=== PATIENT | female | born 1960 | race Caucasian/White ===

== ENCOUNTER 2016-08-05 10:22 | Outpatient (RCR) | payer MEDICARE, MEDICAID ==
[~2016-08-05 10:22] MED LIST: ACHD5005 PO; CPR500T PO; FAMO20TA5 PO; GLIP5TAB13 PO; GOSERELIN ACETATE IL; HYDR-3454 PO; HYDR-3583 PO; HYDR1TAB66 PO; HYDR473S17 GT; IBUP-1773 PO; IBUP200T48 PO; LEVO500T69 PO; LEVO750T6 PO; METF-380 PO; METR500T PO; OMEP-10 PO; ONDA8TAB13 PO; PRED20TA PO; TAMO20TA2 PO; ZOLADEX SQ; ZOLODEX IL
[2016-08-05 10:52] LABS: BASOPHILS % (AUTO) 0 % (0-10); EOSINOPHILS # (AUTO) 0.1 10^3/uL (0.0-0.3); EOSINOPHILS % (AUTO) 2 % (0-10); LYMPHOCYTES # (AUTO) 1.4 X 10^3 (1.0-4.0); LYMPHOCYTES % (AUTO) 19 % (12-44); MEAN CORPUSCULAR HEMOGLOBIN 31 PG (25-34); MEAN CORPUSCULAR HGB CONC 33 G/DL (32-36); MEAN CORPUSCULAR VOLUME 92 FL (80-99); MEAN PLATELET VOLUME 10.8 FL (7.4-10.4); MONOCYTES # (AUTO) 0.7 X 10^3 (0.0-1.0); MONOCYTES % (AUTO) 10 % (0-12); NEUTROPHILS # (AUTO) 5.1 X 10^3 (1.8-7.8); NEUTROPHILS % (AUTO) 70 % (42-75); PLATELET COUNT 117 10^3/uL (130-400); RED BLOOD COUNT 4.53 10^6/uL (4.35-5.85); RED CELL DISTRIBUTION WIDTH 14.7 % (10.0-14.5); WHITE BLOOD COUNT 7.3 10^3/uL (4.3-11.0)
[2016-08-05 11:40] LABS: ALANINE AMINOTRANSFERASE 45 U/L (0-55); ALBUMIN 3.9 G/DL (3.2-4.5); ANION GAP 9 MMOL/L (5-14); ASPARTATE AMINO TRANSFERASE 42 U/L (5-34); BILIRUBIN,TOTAL 0.3 MG/DL (0.1-1.0); BLOOD UREA NITROGEN 10 MG/DL (7-18); BUN/CREATININE RATIO 11; CALCIUM 9.1 MG/DL (8.5-10.1); CARBON DIOXIDE 24 MMOL/L (21-32); CHLORIDE 108 MMOL/L (98-107); CREATININE SERUM 0.89 MG/DL (0.60-1.30); GFR ESTIMATED > 60; GLUCOSE 133 MG/DL (70-105); POTASSIUM 4.4 MMOL/L (3.6-5.0); SODIUM 141 MMOL/L (135-145); TOTAL PROTEIN 6.4 G/DL (6.4-8.2)
== END 2016-11-03 | disposition home or self-care (01) ==
LOC: ONC 10:22
PROVIDERS: ATTEND Internal Medicine Hematology & Oncology
DX: C50.212 Malignant neoplasm of upper-inner quadrant of left female breast (principal); C54.1 Malignant neoplasm of endometrium; D69.6 Thrombocytopenia, unspecified; R60.0 Localized edema; K75.81 Nonalcoholic steatohepatitis (NASH); Z92.21 Personal history of antineoplastic chemotherapy; Z92.3 Personal history of irradiation; Z79.818 Long term (current) use of other agents affecting estrogen receptors and estrogen levels
CPT/HCPCS: 36415; 80053; 85025; 99213

== ENCOUNTER → 2016-09-24 | Outpatient (CLI) | payer MEDICARE, MEDICAID ==
--- NOTE | 2016-09-24 19:01 | Diagnostic Imaging Report ---
INDICATION: Low back pain. TECHNIQUE: AP, Lateral and Spot imaging of the lumbar spine CORRELATION STUDY: None FINDINGS: Minimal anterolisthesis of L4 on L5. There is mild leftward curvature of lumbar spine at L2-L3 level. Lumbar vertebral body heights are maintained. Rather significant disc space narrowing at L4-L5 and to a lesser degree L3-L4 and L5-S1 levels. Mild endplate lipping, particularly at L4 and L2 and L1 levels. SI joints without fusion or erosion. Degenerative change of bilateral hip joints with subcortical sclerosis and cystic formation, particularly on the left. IMPRESSION: Mild leftward curvature. Mild multilevel lumbar spine degenerative disc disease. Dictated by: Dictated on workstation # [id number]
== END ==
LOC: RAD 14:42
PROVIDERS: ATTEND Pain Medicine Pain Medicine
DX: M54.5 Low back pain (principal)
CPT/HCPCS: 72100

== ENCOUNTER → 2016-12-04 | Outpatient (CLI) | payer MEDICARE ==
--- NOTE | 2016-12-04 13:53 | Diagnostic Imaging Report ---
Bilateral screening mammogram The current study was also evaluated with a Computer Aided Detection (CAD) system. INDICATION: Screening. No current complaints stated on the questionnaire. COMPARISON: 12/04/15. FINDINGS: The breasts are composed of heterogeneously dense parenchyma which may decrease mammographic sensitivity. There is scarring and skin thickening seen in the left breast, stable from multiple prior exams with slightly increased benign-appearing calcifications in the left breast. The right breast demonstrates no definite change. IMPRESSION: Slightly increased calcifications in the right breast with no suspicious findings. Annual screening mammograms recommended. ACR BI-RADS Category 2: Benign findings. Result letter will be mailed to the patient. Note: At least 10% of breast cancer is not imaged by mammography. Dictated by: Dictated on workstation # [id number]
== END ==
LOC: RAD 09:50
PROVIDERS: ATTEND Internal Medicine Hematology & Oncology
DX: Z12.31 Encounter for screening mammogram for malignant neoplasm of breast (principal)
CPT/HCPCS: 77067

== ENCOUNTER 2017-01-09 08:28 | Outpatient (RCR) | payer MEDICAID, MEDICARE | END 2017-01-09 09:13 | disposition home or self-care (01) | DX: M54.5 Low back pain (principal); M25.551 Pain in right hip; M25.552 Pain in left hip ==

== ENCOUNTER 2017-02-03 10:41 | Outpatient (RCR) | payer MEDICARE, MEDICAID ==
[2017-02-03 11:00] LABS: BASOPHILS % (AUTO) 0 % (0-10); EOSINOPHILS # (AUTO) 0.1 10^3/uL (0.0-0.3); EOSINOPHILS % (AUTO) 2 % (0-10); LYMPHOCYTES # (AUTO) 2.6 X 10^3 (1.0-4.0); LYMPHOCYTES % (AUTO) 30 % (12-44); MEAN CORPUSCULAR HEMOGLOBIN 31 PG (25-34); MEAN CORPUSCULAR HGB CONC 33 G/DL (32-36); MEAN CORPUSCULAR VOLUME 94 FL (80-99); MEAN PLATELET VOLUME 10.7 FL (7.4-10.4); MONOCYTES # (AUTO) 0.5 X 10^3 (0.0-1.0); MONOCYTES % (AUTO) 6 % (0-12); NEUTROPHILS # (AUTO) 5.4 X 10^3 (1.8-7.8); NEUTROPHILS % (AUTO) 62 % (42-75); PLATELET COUNT 123 10^3/uL (130-400); RED BLOOD COUNT 4.31 10^6/uL (4.35-5.85); RED CELL DISTRIBUTION WIDTH 15.1 % (10.0-14.5); WHITE BLOOD COUNT 8.7 10^3/uL (4.3-11.0)
[2017-02-03 11:40] LABS: ALBUMIN 3.7 GM/DL (3.2-4.5); BILIRUBIN,TOTAL 0.2 MG/DL (0.1-1.0); CALCIUM 9.1 MG/DL (8.5-10.1); CREATININE SERUM 0.98 MG/DL (0.60-1.30); TOTAL PROTEIN 6.4 GM/DL (6.4-8.2)
== END 2017-04-19 | disposition home or self-care (01) ==
LOC: ONC 10:41
PROVIDERS: ATTEND Internal Medicine Hematology & Oncology
DX: C54.1 Malignant neoplasm of endometrium; C50.212 Malignant neoplasm of upper-inner quadrant of left female breast; R60.0 Localized edema; Z79.818 Long term (current) use of other agents affecting estrogen receptors and estrogen levels; Z92.3 Personal history of irradiation; D69.6 Thrombocytopenia, unspecified; K75.81 Nonalcoholic steatohepatitis (NASH); Z92.21 Personal history of antineoplastic chemotherapy
CPT/HCPCS: 36415; 80053; 85025; 99213

== ENCOUNTER → 2017-08-11 | Outpatient (CLI) | payer MEDICARE ==
[2017-08-11 14:05] LABS: HEMOGLOBIN 14.7 G/DL (11.5-16.0); MEAN PLATELET VOLUME 11.4 FL (7.4-10.4); RED BLOOD COUNT 4.66 10^6/uL (4.35-5.85); RED CELL DISTRIBUTION WIDTH 15.1 % (10.0-14.5); WHITE BLOOD COUNT 9.9 10^3/uL (4.3-11.0)
[2017-08-11 14:24] LABS: ALBUMIN 3.8 GM/DL (3.2-4.5); BILIRUBIN,TOTAL 0.3 MG/DL (0.1-1.0); CALCIUM 8.9 MG/DL (8.5-10.1); POTASSIUM 4.4 MMOL/L (3.6-5.0); TOTAL PROTEIN 6.7 GM/DL (6.4-8.2)
--- NOTE | 2017-08-11 15:31 | Diagnostic Imaging Report ---
INDICATION: Cough and fever. TIME OF EXAM: 02:25 p.m. COMPARISON: Comparison is made with prior chest from 02/13/2015. FINDINGS: The heart size is normal. There is questionable infiltrate in the left perihilar region. The right lung is clear. No effusion or pneumothorax is seen. IMPRESSION: Findings suggestive of mild left perihilar pneumonia. Dictated by: Dictated on workstation # [id number]
== END ==
LOC: RAD 13:49
PROVIDERS: ATTEND Nurse Practitioner Family
DX: R05 Cough (principal); R50.9 Fever, unspecified
CPT/HCPCS: 36415; 71045; 80053; 85027; 86738

== ENCOUNTER 2017-08-18 10:55 | Outpatient (RCR) | payer MEDICARE, MEDICAID ==
[2017-08-18 11:21] LABS: BASOPHILS % (AUTO) 0 % (0-10); EOSINOPHILS # (AUTO) 0.1 10^3/uL (0.0-0.3); EOSINOPHILS % (AUTO) 1 % (0-10); HEMATOCRIT 44 % (35-52); HEMOGLOBIN 14.7 G/DL (11.5-16.0); LYMPHOCYTES # (AUTO) 3.4 X 10^3 (1.0-4.0); LYMPHOCYTES % (AUTO) 32 % (12-44); MEAN CORPUSCULAR HEMOGLOBIN 31 PG (25-34); MEAN CORPUSCULAR HGB CONC 34 G/DL (32-36); MEAN CORPUSCULAR VOLUME 92 FL (80-99); MEAN PLATELET VOLUME 11.6 FL (7.4-10.4); MONOCYTES # (AUTO) 0.8 X 10^3 (0.0-1.0); MONOCYTES % (AUTO) 8 % (0-12); NEUTROPHILS # (AUTO) 6.1 X 10^3 (1.8-7.8); NEUTROPHILS % (AUTO) 59 % (42-75); PLATELET COUNT 113 10^3/uL (130-400); RED BLOOD COUNT 4.77 10^6/uL (4.35-5.85); RED CELL DISTRIBUTION WIDTH 14.7 % (10.0-14.5); WHITE BLOOD COUNT 10.5 10^3/uL (4.3-11.0)
[2017-08-18 11:42] LABS: ALBUMIN 3.6 GM/DL (3.2-4.5); BILIRUBIN,TOTAL 0.3 MG/DL (0.1-1.0); CALCIUM 9.2 MG/DL (8.5-10.1); CREATININE SERUM 1.05 MG/DL (0.60-1.30); POTASSIUM 5.4 MMOL/L (3.6-5.0); TOTAL PROTEIN 6.5 GM/DL (6.4-8.2)
== END 2017-11-16 | disposition home or self-care (01) ==
LOC: ONC 10:55
PROVIDERS: ATTEND Internal Medicine Hematology & Oncology
DX: C50.212 Malignant neoplasm of upper-inner quadrant of left female breast (principal); C54.1 Malignant neoplasm of endometrium; D69.6 Thrombocytopenia, unspecified; R60.0 Localized edema; K75.81 Nonalcoholic steatohepatitis (NASH); Z92.21 Personal history of antineoplastic chemotherapy; Z92.3 Personal history of irradiation; Z79.818 Long term (current) use of other agents affecting estrogen receptors and estrogen levels; Z79.899 Other long term (current) drug therapy
CPT/HCPCS: 36415; 80053; 85025; 99213

== ENCOUNTER → 2017-08-21 | Outpatient (CLI) | payer MEDICARE ==
--- NOTE | 2017-08-21 14:43 | Diagnostic Imaging Report ---
INDICATION: Pneumonia, followup. Time of exam 2:24 PM Correlation is made to prior study of 08/11/2017. The heart size is stable. Mild left perihilar infiltrate remains. The right lung is clear. No effusion or pneumothorax is seen. IMPRESSION: Continued mild left-sided pulmonary infiltrate, similar to examination one week earlier. Dictated by: Dictated on workstation # [id number]
== END ==
LOC: RAD 13:47
PROVIDERS: ATTEND Nurse Practitioner Family
DX: J18.8 Other pneumonia, unspecified organism (principal)
CPT/HCPCS: 71046

== ENCOUNTER → 2017-12-05 | Outpatient (CLI) | payer MEDICAID, MEDICARE ==
--- NOTE | 2017-12-05 19:47 | Diagnostic Imaging Report ---
INDICATION: Left breast carcinoma. COMPARISON: Correlation is made with prior exam from 12/04/2016 and 12/04/2015. TECHNIQUE: Bilateral 2D and 3D diagnostic mammography was performed with computer-aided detection (CAD) system. FINDINGS: Post-lumpectomy changes in the left breast are again noted. Overall parenchymal pattern is stable. There are scattered fibroglandular densities bilaterally. There are bilateral calcifications which appear benign. No malignant appearing microcalcifications are seen. The axillae are unremarkable. IMPRESSION: No mammographic features suspicious for malignancy are identified. ACR BI-RADS Category 2: Benign findings. Result letter will be mailed to the patient. Note: At least 10% of breast cancer is not imaged by mammography. Dictated by: Dictated on workstation # [id number]
== END ==
LOC: RAD 11:55
PROVIDERS: ATTEND Nurse Practitioner Adult Health
DX: C50.212 Malignant neoplasm of upper-inner quadrant of left female breast (principal)
CPT/HCPCS: 77066

== ENCOUNTER 2018-01-06 10:30 | Outpatient (RCR) | payer MEDICARE ==
[2018-01-06 10:38] LABS: BASOPHILS % (AUTO) 0 % (0-10); EOSINOPHILS # (AUTO) 0.1 10^3/uL (0.0-0.3); EOSINOPHILS % (AUTO) 2 % (0-10); HEMATOCRIT 41 % (35-52); HEMOGLOBIN 13.8 G/DL (11.5-16.0); LYMPHOCYTES # (AUTO) 2.1 X 10^3 (1.0-4.0); LYMPHOCYTES % (AUTO) 28 % (12-44); MEAN CORPUSCULAR HEMOGLOBIN 31 PG (25-34); MEAN CORPUSCULAR HGB CONC 34 G/DL (32-36); MEAN CORPUSCULAR VOLUME 92 FL (80-99); MEAN PLATELET VOLUME 12.9 FL (7.4-10.4); MONOCYTES # (AUTO) 0.4 X 10^3 (0.0-1.0); MONOCYTES % (AUTO) 6 % (0-12); NEUTROPHILS # (AUTO) 4.8 X 10^3 (1.8-7.8); NEUTROPHILS % (AUTO) 64 % (42-75); PLATELET COUNT 76 10^3/uL (130-400); RED BLOOD COUNT 4.47 10^6/uL (4.35-5.85); RED CELL DISTRIBUTION WIDTH 14.9 % (10.0-14.5); WHITE BLOOD COUNT 7.5 10^3/uL (4.3-11.0)
[2018-01-06 10:59] LABS: ALBUMIN 3.7 GM/DL (3.2-4.5); BILIRUBIN,TOTAL 0.4 MG/DL (0.1-1.0); CALCIUM 9.1 MG/DL (8.5-10.1); CREATININE SERUM 1.32 MG/DL (0.60-1.30); POTASSIUM 5.9 MMOL/L (3.6-5.0); TOTAL PROTEIN 6.6 GM/DL (6.4-8.2)
== END 2018-01-08 10:32 | disposition home or self-care (01) ==
LOC: ONC 10:30
PROVIDERS: ATTEND Internal Medicine Hematology & Oncology
DX: C50.212 Malignant neoplasm of upper-inner quadrant of left female breast (principal); C54.1 Malignant neoplasm of endometrium; D69.6 Thrombocytopenia, unspecified; R60.0 Localized edema; K75.81 Nonalcoholic steatohepatitis (NASH); Z92.21 Personal history of antineoplastic chemotherapy; Z92.3 Personal history of irradiation; Z79.818 Long term (current) use of other agents affecting estrogen receptors and estrogen levels; Z79.899 Other long term (current) drug therapy
CPT/HCPCS: 36415; 80053; 85025; 99213

== ENCOUNTER → 2018-03-20 | Outpatient (RCR) | payer MEDICARE ==
[~2018-03-20] MED LIST changes: +NS IV 1000 ML (CANCER CTR) 1,000 ML ONE
== END | disposition home or self-care (01) ==
LOC: ONC 10:45
PROVIDERS: ATTEND Internal Medicine Hematology & Oncology
DX: C50.212 Malignant neoplasm of upper-inner quadrant of left female breast (principal); C54.1 Malignant neoplasm of endometrium; D69.6 Thrombocytopenia, unspecified; R60.0 Localized edema; K75.81 Nonalcoholic steatohepatitis (NASH); Z92.21 Personal history of antineoplastic chemotherapy; Z92.3 Personal history of irradiation; Z79.818 Long term (current) use of other agents affecting estrogen receptors and estrogen levels; Z79.899 Other long term (current) drug therapy
CPT/HCPCS: 96360

== ENCOUNTER → 2018-03-20 | Outpatient (CLI) | payer MEDICARE ==
[~2018-03-20] MED LIST changes: -NS IV 1000 ML (CANCER CTR) 1,000 ML ONE
[2018-03-20] MEDS: NS 250 ML (IVPB) BAG IV ONE (10:10)
[2018-03-20] MEDS: IOHEXOL 350 MG/ML 100 ML (OMNIPAQUE 350) VIAL IV ONE (10:10)
[2018-03-20] MEDS: BARIUM SUSPENSION 2.1% (VANILLA SILQ) 450 ML PO ONE (10:10)
--- NOTE | 2018-03-20 11:10 | Diagnostic Imaging Report ---
INDICATION: Bloating, history of endometrial cancer. CT chest, abdomen and pelvis obtained with IV contrast bolus and patient was premedicated due to history of previous allergic reaction. CT chest, abdomen and pelvis obtained and compared with 05/01/2015. CT CHEST FINDINGS: There are no enlarged mediastinal or hilar nodes. There are no enlarged axillary nodes. Some soft tissue thickening and scarring is visualized over the left breast, this appears unchanged from 05/01/2015, correlate with recent mammography. There is no pleural or pericardial fluid. Lung parenchymal windows demonstrate some apparent parenchymal scarring in the left upper lobe which appears similar to 05/01/2015. There is no suspicious nodule or infiltrate. CT ABDOMEN AND PELVIS FINDINGS: The liver shows mild fatty infiltration, less pronounced than was seen on 05/01/2015. There is no focal liver lesion. The gallbladder appears normal. The spleen, adrenals, and pancreas are normal. The kidneys bilaterally are unremarkable. There is no retroperitoneal mass or adenopathy. There is no ascites or abnormal fluid collection. There is minor atherosclerotic plaquing of the aorta but no evidence of aneurysm. Visualized bowel loops appear unremarkable. There is no pelvic mass or free fluid. Patient has had hysterectomy. IMPRESSION: CT chest demonstrates no acute abnormality or acute change from 05/01/2015. There is some parenchymal scarring in the left upper lobe which is unchanged from the prior study. There is some scarring in the left breast which appears stable as well, correlate with recent mammography. There is no acute appearing finding in the chest. CT abdomen and pelvis demonstrates no overt evidence of metastatic disease. There is no mass or inflammatory process or bowel obstruction. Fatty infiltration of the liver has improved compared to the previous study. Dictated by: Dictated on workstation # [id number]
== END ==
LOC: RAD 09:59
PROVIDERS: ATTEND Internal Medicine Hematology & Oncology
DX: K76.0 Fatty (change of) liver, not elsewhere classified (principal); J98.4 Other disorders of lung; N64.89 Other specified disorders of breast; Z85.42 Personal history of malignant neoplasm of other parts of uterus; Z85.3 Personal history of malignant neoplasm of breast
CPT/HCPCS: 71260; 74177

== ENCOUNTER 2018-06-30 10:56 | Outpatient (RCR) | payer MEDICARE ==
[2018-06-30 11:07] LABS: BASOPHILS % (AUTO) 1 % (0-10); EOSINOPHILS # (AUTO) 0.1 10^3/uL (0.0-0.3); EOSINOPHILS % (AUTO) 2 % (0-10); HEMATOCRIT 42 % (35-52); HEMOGLOBIN 13.6 G/DL (11.5-16.0); LYMPHOCYTES # (AUTO) 2.3 X 10^3 (1.0-4.0); LYMPHOCYTES % (AUTO) 36 % (12-44); MEAN CORPUSCULAR HEMOGLOBIN 31 PG (25-34); MEAN CORPUSCULAR HGB CONC 33 G/DL (32-36); MEAN CORPUSCULAR VOLUME 94 FL (80-99); MEAN PLATELET VOLUME 11.8 FL (7.4-10.4); MONOCYTES # (AUTO) 0.3 X 10^3 (0.0-1.0); MONOCYTES % (AUTO) 5 % (0-12); NEUTROPHILS # (AUTO) 3.6 X 10^3 (1.8-7.8); NEUTROPHILS % (AUTO) 57 % (42-75); PLATELET COUNT 84 10^3/uL (130-400); RED CELL DISTRIBUTION WIDTH 15.1 % (10.0-14.5); WHITE BLOOD COUNT 6.3 10^3/uL (4.3-11.0)
[2018-06-30 11:31] LABS: ALBUMIN 4.2 GM/DL (3.2-4.5); BILIRUBIN,TOTAL 0.3 MG/DL (0.1-1.0); CALCIUM 9.4 MG/DL (8.5-10.1); CREATININE SERUM 1.04 MG/DL (0.60-1.30); POTASSIUM 4.9 MMOL/L (3.6-5.0); TOTAL PROTEIN 6.6 GM/DL (6.4-8.2)
== END 2018-09-28 | disposition home or self-care (01) ==
LOC: ONC 10:56
PROVIDERS: ATTEND Internal Medicine Hematology & Oncology
DX: C50.212 Malignant neoplasm of upper-inner quadrant of left female breast (principal); C54.1 Malignant neoplasm of endometrium; D69.6 Thrombocytopenia, unspecified; R60.0 Localized edema; K75.81 Nonalcoholic steatohepatitis (NASH); Z92.21 Personal history of antineoplastic chemotherapy; Z92.3 Personal history of irradiation; Z79.818 Long term (current) use of other agents affecting estrogen receptors and estrogen levels; Z79.899 Other long term (current) drug therapy
CPT/HCPCS: 36415; 80053; 85025; 99213

== ENCOUNTER 2018-07-09 13:30 | Outpatient (RCR) | payer MEDICARE | END 2018-07-09 15:56 | disposition home or self-care (01) | PROVIDERS: ATTEND Internal Medicine Hematology & Oncology | DX: I89.0 Lymphedema, not elsewhere classified (principal); C50.212 Malignant neoplasm of upper-inner quadrant of left female breast ==

== ENCOUNTER → 2018-09-15 | Outpatient (CLI) | payer MEDICARE ==
[2018-09-15 07:41] LABS: HEMOGLOBIN 13.2 G/DL (11.5-16.0); MEAN PLATELET VOLUME 11.6 FL (7.4-10.4); RED CELL DISTRIBUTION WIDTH 15.1 % (10.0-14.5); WHITE BLOOD COUNT 8.2 10^3/uL (4.3-11.0)
[2018-09-15 07:44] LABS: BILIRUBIN,URINE NEGATIVE (NEGATIVE); CLARITY,URINE CLEAR; COLOR,URINE YELLOW; GLUCOSE, URINE (UA) NEGATIVE (NEGATIVE); KETONES,URINE NEGATIVE (NEGATIVE); LEUKOCYTE ESTERASE ,URINE NEGATIVE (NEGATIVE); NITRITE,URINE NEGATIVE (NEGATIVE); PH,URINE 5 (5-9); PROTEIN,URINE 1+ (NEGATIVE); UROBILINOGEN,URINE NORMAL (NORMAL)
[2018-09-15 08:02] LABS: BILIRUBIN,TOTAL 0.2 MG/DL (0.1-1.0); CALCIUM 9.5 MG/DL (8.5-10.1); CREATININE SERUM 1.07 MG/DL (0.60-1.30); POTASSIUM 4.6 MMOL/L (3.6-5.0); TOTAL PROTEIN 6.6 GM/DL (6.4-8.2)
[2018-09-15 08:11] LABS: BACTERIA,URINE NEGATIVE /HPF; WBC,URINE RARE /HPF
== END ==
LOC: LAB 07:15
PROVIDERS: ATTEND Registered Nurse
DX: E11.9 Type 2 diabetes mellitus without complications (principal); R74.8 Abnormal levels of other serum enzymes; D69.6 Thrombocytopenia, unspecified
CPT/HCPCS: 36415; 80053; 80061; 81000; 82043; 83036; 84443; 85027

== ENCOUNTER → 2018-12-08 | Outpatient (CLI) | payer MEDICARE ==
--- NOTE | 2018-12-08 15:45 | Diagnostic Imaging Report ---
INDICATION: Postmenopausal state, breast cancer. COMPARISON: None available. FINDINGS: AP Spine L1-L4: [BMD (g/cm2): 1.374] [T-Score: 1.4] [Z-Score: 1.8] [BMD Previous: N/A] [BMD % Change: N/A] LT Hip Neck: [BMD (g/cm2): 1.078] [T-Score: 0.3] [Z-Score: 1.0] LT Hip Total: [BMD (g/cm2):1.169] [T-Score:1.3] [Z-Score: 1.6] [BMD Previous: N/A] [BMD % Change: N/A] RT Hip Neck: [BMD (g/cm2):1.055] [T-Score:0.1] [Z-Score:0.8] RT Hip Total: [BMD (g/cm2):1.182] [T-score:1.4] [Z-Score:1.7] [BMD Previous:N/A] [BMD % Change:N/A] *Indicates significant change from prior examination based on 95% confidence level. World Health Organization criteria for BMD interpretation classify patients as Normal (T-score at or above -1.0), Osteopenic (T-score between -1.0 and -2.5) or Osteoporotic (T-score at or below -2.5). LIMITATIONS AND MODIFICATION: None. FRACTURE RISK (FRAX SCORE): The ten year probability of (%): Major Osteoporotic Fracture: [N/A] Hip Fracture: [N/A] IMPRESSION: 1. Normal bone mineral density. 2. Baseline examination. 3. See below National Osteoporosis Foundation guidelines on when to potentially initiate pharmacologic therapy. Based on the National Osteoporosis Foundation Guidelines, pharmacologic treatment should be initiated in any of the following, unless clinical conditions suggest otherwise: * Any patient with prior fragility fracture of the hip or vertebrae. A spine fracture indicates 5X risk for subsequent spine fracture and 2X risk for subsequent hip fracture. * Osteoporosis (T-score <-2.5). * Postmenopausal women and men age 50 and older with low bone mass/osteopenia (T-score between -1.0 and -2.5) by DXA and 10-year major osteoporotic fracture greater than 20% or a 10-year probability of hip fracture greater than 3%. These fracture risks are supplied above in the FRAX score, if applicable. * Clinician judgement and/or patient preferences may indicate treatment for people with 10-year fracture probabilities above or below these levels. Dictated by: Dictated on workstation # [id number]
== END ==
LOC: RAD 11:03
PROVIDERS: ATTEND Nurse Practitioner Adult Health
DX: C50.212 Malignant neoplasm of upper-inner quadrant of left female breast (principal); N18.3 Chronic kidney disease, stage 3 (moderate); Z78.0 Asymptomatic menopausal state
CPT/HCPCS: 77080

== ENCOUNTER → 2018-12-10 | Outpatient (CLI) | payer MEDICARE ==
--- NOTE | 2018-12-10 14:25 | Diagnostic Imaging Report ---
Indication: Breast carcinoma. Correlation is made with prior mammogram from 12/05/2017 and 12/04/2016. 2-D and 3-D bilateral diagnostic mammography was performed with CAD. Scattered fibronodular densities are identified bilaterally. Post therapeutic changes involving the left breast with architectural distortion appears to be stable. There are benign calcifications bilaterally. No new mass or malignant-appearing microcalcifications are seen. Axillae are unremarkable. Impression: BI-RADS category 2 No mammographic features suspicious for malignancy are identified. Dictated by: Dictated on workstation # [id number]
== END ==
LOC: RAD 12:25
PROVIDERS: ATTEND Nurse Practitioner Adult Health
DX: C50.212 Malignant neoplasm of upper-inner quadrant of left female breast (principal); N18.3 Chronic kidney disease, stage 3 (moderate); Z78.0 Asymptomatic menopausal state
CPT/HCPCS: 77066

== ENCOUNTER → 2018-12-12 | Emergency (ER) | payer MEDICARE | LOC: ER 18:15 ==

== ENCOUNTER 2018-12-29 10:25 | Outpatient (RCR) | payer MEDICARE ==
[~2018-12-29 10:25] MED LIST changes: +CEFD300C3 PO; +GUAI1TBM19 PO; +METH4TAB PO
[2018-12-29 10:46] LABS: BASOPHILS % (AUTO) 0 % (0-10); EOSINOPHILS # (AUTO) 0.1 10^3/uL (0.0-0.3); EOSINOPHILS % (AUTO) 1 % (0-10); HEMATOCRIT 39 % (35-52); HEMOGLOBIN 12.8 G/DL (11.5-16.0); LYMPHOCYTES # (AUTO) 2.6 X 10^3 (1.0-4.0); LYMPHOCYTES % (AUTO) 36 % (12-44); MEAN CORPUSCULAR HEMOGLOBIN 31 PG (25-34); MEAN CORPUSCULAR HGB CONC 33 G/DL (32-36); MEAN CORPUSCULAR VOLUME 94 FL (80-99); MEAN PLATELET VOLUME 11.3 FL (7.4-10.4); MONOCYTES # (AUTO) 0.5 X 10^3 (0.0-1.0); MONOCYTES % (AUTO) 7 % (0-12); NEUTROPHILS % (AUTO) 56 % (42-75); PLATELET COUNT 76 10^3/uL (130-400); RED CELL DISTRIBUTION WIDTH 15.7 % (10.0-14.5); WHITE BLOOD COUNT 7.1 10^3/uL (4.3-11.0)
[2018-12-29 11:03] LABS: ALBUMIN 3.7 GM/DL (3.2-4.5); BILIRUBIN,TOTAL 0.3 MG/DL (0.1-1.0); CALCIUM 9.3 MG/DL (8.5-10.1); CREATININE SERUM 1.12 MG/DL (0.60-1.30); POTASSIUM 5.5 MMOL/L (3.6-5.0); TOTAL PROTEIN 6.3 GM/DL (6.4-8.2)
== END 2019-03-29 | disposition home or self-care (01) ==
LOC: ONC 10:25
PROVIDERS: ATTEND Internal Medicine Hematology & Oncology
DX: C50.212 Malignant neoplasm of upper-inner quadrant of left female breast (principal); Z85.41 Personal history of malignant neoplasm of cervix uteri; D69.6 Thrombocytopenia, unspecified; N18.3 Chronic kidney disease, stage 3 (moderate); E11.22 Type 2 diabetes mellitus with diabetic chronic kidney disease; R19.7 Diarrhea, unspecified; Z90.710 Acquired absence of both cervix and uterus; Z79.810 Long term (current) use of selective estrogen receptor modulators (SERMs); Z79.84 Long term (current) use of oral hypoglycemic drugs; Z79.899 Other long term (current) drug therapy; Z78.0 Asymptomatic menopausal state
CPT/HCPCS: 36415; 80053; 85025; 99213

== ENCOUNTER → 2019-06-29 | Outpatient (CLI) | payer MEDICARE ==
[2019-06-29 10:41] LABS: BASOPHILS % (AUTO) 0 % (0-10); EOSINOPHILS # (AUTO) 0.1 10^3/uL (0.0-0.3); EOSINOPHILS % (AUTO) 1 % (0-10); HEMATOCRIT 42 % (35-52); HEMOGLOBIN 13.6 G/DL (11.5-16.0); LYMPHOCYTES # (AUTO) 2.6 X 10^3 (1.0-4.0); LYMPHOCYTES % (AUTO) 35 % (12-44); MEAN CORPUSCULAR HEMOGLOBIN 31 PG (25-34); MEAN CORPUSCULAR HGB CONC 33 G/DL (32-36); MEAN CORPUSCULAR VOLUME 94 FL (80-99); MEAN PLATELET VOLUME 11.6 FL (7.4-10.4); MONOCYTES # (AUTO) 0.5 X 10^3 (0.0-1.0); MONOCYTES % (AUTO) 7 % (0-12); NEUTROPHILS # (AUTO) 4.2 X 10^3 (1.8-7.8); NEUTROPHILS % (AUTO) 57 % (42-75); PLATELET COUNT 84 10^3/uL (130-400); RED CELL DISTRIBUTION WIDTH 14.9 % (10.0-14.5); WHITE BLOOD COUNT 7.3 10^3/uL (4.3-11.0)
[2019-06-29 11:02] LABS: BILIRUBIN,TOTAL 0.2 MG/DL (0.1-1.0); CALCIUM 8.9 MG/DL (8.5-10.1); CREATININE SERUM 1.09 MG/DL (0.60-1.30); POTASSIUM 4.6 MMOL/L (3.6-5.0); TOTAL PROTEIN 6.5 GM/DL (6.4-8.2)
== END ==
LOC: EDSTATUS 03-30 10:31 → ONC 10:32
PROVIDERS: ATTEND Internal Medicine Hematology & Oncology
DX: C50.212 Malignant neoplasm of upper-inner quadrant of left female breast (principal); D69.6 Thrombocytopenia, unspecified; E11.22 Type 2 diabetes mellitus with diabetic chronic kidney disease; N18.3 Chronic kidney disease, stage 3 (moderate); Z92.21 Personal history of antineoplastic chemotherapy; Z92.3 Personal history of irradiation; Z85.42 Personal history of malignant neoplasm of other parts of uterus
CPT/HCPCS: 80053; 85025; 99213

== ENCOUNTER → 2019-12-14 | Outpatient (CLI) | payer MEDICARE ==
--- NOTE | 2019-12-14 13:05 | Diagnostic Imaging Report ---
INDICATION: Routine screening. COMPARISON: 12/10/2018 and 12/05/2017. TECHNIQUE: 2D and 3D bilateral screening mammography was performed with CAD. FINDINGS: Post-therapeutic changes in the left breast are again noted with architectural distortion. There are benign calcifications throughout the left breast. The right breast appears to be stable. No new mass or malignant appearing microcalcifications are seen. The axillae are unremarkable. IMPRESSION: No mammographic features suspicious for malignancy are identified. ACR BI-RADS Category 2: Benign findings. Result letter will be mailed to the patient. Note: At least 10% of breast cancer is not imaged by mammography. Dictated by: Dictated on workstation # [id number]
== END ==
LOC: RAD 09:17
PROVIDERS: ATTEND Internal Medicine Hematology & Oncology
DX: Z12.31 Encounter for screening mammogram for malignant neoplasm of breast (principal); C50.212 Malignant neoplasm of upper-inner quadrant of left female breast
CPT/HCPCS: 77063; 77067

== ENCOUNTER → 2020-01-05 | Outpatient (CLI) | payer MEDICARE ==
[2020-01-05 10:14] LABS: BASOPHILS % (AUTO) 0 % (0-10); EOSINOPHILS # (AUTO) 0.1 10^3/uL (0.0-0.3); EOSINOPHILS % (AUTO) 2 % (0-10); HEMATOCRIT 39 % (35-52); LYMPHOCYTES # (AUTO) 2.1 X 10^3 (1.0-4.0); LYMPHOCYTES % (AUTO) 36 % (12-44); MEAN CORPUSCULAR HEMOGLOBIN 31 PG (25-34); MEAN CORPUSCULAR HGB CONC 33 G/DL (32-36); MEAN CORPUSCULAR VOLUME 93 FL (80-99); MEAN PLATELET VOLUME 12.1 FL (7.4-10.4); MONOCYTES # (AUTO) 0.5 X 10^3 (0.0-1.0); MONOCYTES % (AUTO) 9 % (0-12); NEUTROPHILS # (AUTO) 3.1 X 10^3 (1.8-7.8); NEUTROPHILS % (AUTO) 53 % (42-75); PLATELET COUNT 79 10^3/uL (130-400); RED CELL DISTRIBUTION WIDTH 14.5 % (10.0-14.5); WHITE BLOOD COUNT 5.8 10^3/uL (4.3-11.0)
[2020-01-05 10:34] LABS: ALBUMIN 3.8 GM/DL (3.2-4.5); BILIRUBIN,TOTAL 0.2 MG/DL (0.1-1.0); CALCIUM 8.9 MG/DL (8.5-10.1); CREATININE SERUM 1.02 MG/DL (0.60-1.30); POTASSIUM 5.1 MMOL/L (3.6-5.0); TOTAL PROTEIN 6.7 GM/DL (6.4-8.2)
== END ==
LOC: ONC 10:03
PROVIDERS: ATTEND Internal Medicine Hematology & Oncology
DX: C50.212 Malignant neoplasm of upper-inner quadrant of left female breast (principal); C54.1 Malignant neoplasm of endometrium; D69.6 Thrombocytopenia, unspecified; Z92.3 Personal history of irradiation
CPT/HCPCS: 80053; 85025; G0463; 99213

== ENCOUNTER → 2020-07-04 | Outpatient (CLI) | payer MEDICARE ==
[2020-07-04 10:45] LABS: BASOPHILS % (AUTO) 0 % (0-10); EOSINOPHILS # (AUTO) 0.1 10^3/uL (0.0-0.3); EOSINOPHILS % (AUTO) 2 % (0-10); HEMATOCRIT 36 % (35-52); HEMOGLOBIN 10.9 g/dL (11.5-16.0); LYMPHOCYTES # (AUTO) 1.7 10^3/uL (1.0-4.0); LYMPHOCYTES % (AUTO) 33 % (12-44); MEAN CORPUSCULAR HEMOGLOBIN 29 pg (25-34); MEAN CORPUSCULAR HGB CONC 30 g/dL (32-36); MEAN CORPUSCULAR VOLUME 94 fL (80-99); MEAN PLATELET VOLUME 12.9 fL (9.0-12.2); MONOCYTES # (AUTO) 0.3 10^3/uL (0.0-1.0); MONOCYTES % (AUTO) 6 % (0-12); NEUTROPHILS % (AUTO) 59 % (42-75); PLATELET COUNT 85 10^3/uL (130-400)
[2020-07-04 11:12] LABS: ALBUMIN 3.5 GM/DL (3.2-4.5); BILIRUBIN,TOTAL 0.3 MG/DL (0.1-1.0); CALCIUM 8.4 MG/DL (8.5-10.1); POTASSIUM 4.5 MMOL/L (3.6-5.0); TOTAL PROTEIN 6.1 GM/DL (6.4-8.2)
== END ==
LOC: ONC 10:35
PROVIDERS: ATTEND Internal Medicine Hematology & Oncology
DX: C50.219 Malignant neoplasm of upper-inner quadrant of unspecified female breast (principal); D69.6 Thrombocytopenia, unspecified; Z79.810 Long term (current) use of selective estrogen receptor modulators (SERMs)
CPT/HCPCS: 80053; 85025; G0463; 99213

== ENCOUNTER → 2020-07-31 | Outpatient (CLI) | payer MEDICARE ==
[~2020-07-31] MED LIST changes: +CATHETER FLUSH 10 ML SYR IV PRN; +HOLD METFORMIN - RECEIVED CONTRAST 20 ML VIAL IV SCH; +IOHEXOL 350 MG/ML 100 ML (OMNIPAQUE 350) VIAL IV ONE; +NS 100 ML (IVPB) BAG IV ONE
--- NOTE | 2020-07-31 10:22 | Diagnostic Imaging Report ---
PROCEDURE: CT chest and abdomen with contrast. TECHNIQUE: Multiple contiguous axial images were obtained through the chest and abdomen after the administration of intravenous contrast. Auto Exposure Controls were utilized during the CT exam to meet ALARA standards for radiation dose reduction. INDICATION: Breast cancer. FINDINGS: The previous CT chest, abdomen, and pelvis exam of 03/20/2018 failed to show any sign of an acute abnormality. There was no evidence for metastatic disease related to the patient's diagnosis of breast cancer either. The images through the thorax show that the heart size is within normal limits and stable when compared to the prior exam. Coronary artery calcifications are evident. The aorta is not abnormally dilated and there is no sign of dissection. The pulmonary arteries were not well opacified and consequently difficult to assess for a pulmonary embolus. There is no definite defect to indicate a pulmonary embolus. The prior exam did show scar formation in the left upper lobe. That finding is again evident and no different. The lungs are otherwise generally clear. There is no sign of failure, pneumonia, or pleural effusion. There is no parenchymal lung mass identified either. There is no mediastinal or hilar adenopathy. The faint area of diminished density in the right lobe of the thyroid seen previously is again evident and no different. The scar formation in the left retroareolar region noted on the prior study is also unchanged. There is no obvious breast mass. The images through the abdomen again show the liver is of lower density than usually seen. This does suggest fatty metamorphosis. There is no focal mass involving the liver to suggest metastatic disease. The spleen, pancreas, adrenals, gallbladder, kidneys, aorta, and inferior vena cava show no sign of an acute abnormality. The stomach is partially filled with oral contrast and difficult to assess. There is no mass or free fluid collection evident. The bone windows show no evidence for a fracture or for a destructive lesion. IMPRESSION: 1. The appearance of the chest and abdomen is stable when compared to the prior exam. There is still no evidence for an acute abnormality and there is no sign of metastatic disease related to the patient's diagnosis of breast cancer. 2. 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 Dictated by: Dictated on workstation # [id number]
== END ==
LOC: RAD 09:17
PROVIDERS: ATTEND Internal Medicine Hematology & Oncology
DX: Z12.31 Encounter for screening mammogram for malignant neoplasm of breast (principal); C50.219 Malignant neoplasm of upper-inner quadrant of unspecified female breast; C54.1 Malignant neoplasm of endometrium; K76.0 Fatty (change of) liver, not elsewhere classified
CPT/HCPCS: 71260; 74160

== ENCOUNTER → 2020-12-14 | Outpatient (CLI) | payer MEDICARE ==
[~2020-12-14] MED LIST changes: -CATHETER FLUSH 10 ML SYR IV PRN; -HOLD METFORMIN - RECEIVED CONTRAST 20 ML VIAL IV SCH; -IOHEXOL 350 MG/ML 100 ML (OMNIPAQUE 350) VIAL IV ONE; -NS 100 ML (IVPB) BAG IV ONE
--- NOTE | 2020-12-14 14:01 | Diagnostic Imaging Report ---
INDICATION: Routine screening. Comparison is made with prior mammogram 12/14/2019 and 12/10/2018. 2-D and 3-D bilateral screening mammography was performed with a Computer Aided Detection (CAD) system. 3-D tomosynthesis was also performed and reviewed. FINDINGS: Both breasts are heterogeneously dense, limiting the sensitivity of mammography. Post-therapeutic changes with architectural distortion and numerous benign calcifications left breast is again noted. No new mass or malignant appearing microcalcifications are seen. Axillae are unremarkable. IMPRESSION: No mammographic features suspicious for malignancy are identified. ACR BI-RADS Category 2: Benign findings. Result letter will be mailed to the patient. Note: At least 10% of breast cancer is not imaged by mammography. Dictated by: Dictated on workstation # [id number]
== END ==
LOC: RAD 10:11
PROVIDERS: ATTEND Internal Medicine Hematology & Oncology
DX: Z12.31 Encounter for screening mammogram for malignant neoplasm of breast (principal); C50.219 Malignant neoplasm of upper-inner quadrant of unspecified female breast; C54.1 Malignant neoplasm of endometrium
CPT/HCPCS: 77063; 77067

== ENCOUNTER → 2021-01-02 | Outpatient (CLI) | payer MEDICARE ==
[2021-01-02 10:14] LABS: BASOPHILS % (AUTO) 0 % (0-10); EOSINOPHILS # (AUTO) 0.1 10^3/uL (0.0-0.3); EOSINOPHILS % (AUTO) 2 % (0-10); HEMATOCRIT 37 % (35-52); HEMOGLOBIN 11.5 g/dL (11.5-16.0); LYMPHOCYTES # (AUTO) 1.8 10^3/uL (1.0-4.0); LYMPHOCYTES % (AUTO) 33 % (12-44); MEAN CORPUSCULAR HEMOGLOBIN 28 pg (25-34); MEAN CORPUSCULAR HGB CONC 31 g/dL (32-36); MEAN CORPUSCULAR VOLUME 90 fL (80-99); MEAN PLATELET VOLUME 12.3 fL (9.0-12.2); MONOCYTES # (AUTO) 0.5 10^3/uL (0.0-1.0); MONOCYTES % (AUTO) 8 % (0-12); NEUTROPHILS # (AUTO) 3.2 10^3/uL (1.8-7.8); NEUTROPHILS % (AUTO) 56 % (42-75); PLATELET COUNT 75 10^3/uL (130-400); WHITE BLOOD COUNT 5.6 10^3/uL (4.3-11.0)
[2021-01-02 10:40] LABS: ALBUMIN 3.6 GM/DL (3.2-4.5); BILIRUBIN,TOTAL 0.3 MG/DL (0.1-1.0); CREATININE SERUM 1.3 MG/DL (0.60-1.30); POTASSIUM 4.6 MMOL/L (3.6-5.0); TOTAL PROTEIN 6.4 GM/DL (6.4-8.2)
== END ==
LOC: ONC 10:04
PROVIDERS: ATTEND Internal Medicine Hematology & Oncology
DX: C54.1 Malignant neoplasm of endometrium (principal); C50.211 Malignant neoplasm of upper-inner quadrant of right female breast; Z90.12 Acquired absence of left breast and nipple; C50.912 Malignant neoplasm of unspecified site of left female breast; D69.6 Thrombocytopenia, unspecified; E11.22 Type 2 diabetes mellitus with diabetic chronic kidney disease; N18.30 Chronic kidney disease, stage 3 unspecified; K21.9 Gastro-esophageal reflux disease without esophagitis; Z98.890 Other specified postprocedural states; Z92.21 Personal history of antineoplastic chemotherapy; Z79.810 Long term (current) use of selective estrogen receptor modulators (SERMs)
CPT/HCPCS: 80053; 85025; G0463; 99213

== ENCOUNTER → 2021-02-21 | Outpatient (CLI) | payer MEDICARE | LOC: CARD 11:30 | PROVIDERS: ATTEND Internal Medicine Cardiovascular Disease | DX: I08.0 Rheumatic disorders of both mitral and aortic valves (principal) | CPT/HCPCS: 93306 ==

== ENCOUNTER → 2021-05-04 | Outpatient (CLI) | payer MEDICARE ==
--- NOTE | 2021-05-04 11:45 | Diagnostic Imaging Report ---
PROCEDURE: US Gallbladder. TECHNIQUE: Multiple real-time grayscale images were obtained over the right upper quadrant in various projections. INDICATION: Right upper quadrant pain. FINDINGS: There are no prior ultrasound examinations available for comparison. The CT abdomen/pelvis exam of 07/31/2020 failed to show any sign of an acute abnormality of the gallbladder. On this exam, there is still no evidence for cholelithiasis or acute cholecystitis, and the common bile duct is not dilated. The liver does not appear to be enlarged. The liver is somewhat more echogenic than usually seen. This appearance does raise a question of fatty metamorphosis. There is also an area of diminished echogenicity within the right lobe of the liver near the gallbladder fossa. This may be related to regional focal fatty sparing. The biliary tree is not abnormally dilated. Spectral and color-flow imaging of the portal vein shows the vein is patent. The right kidney, the aorta, and the inferior vena cava are unremarkable. The pancreas was not well visualized. IMPRESSION: 1. There is no evidence for an acute abnormality of the right upper quadrant. 2. If clinical concern regarding an underlying abnormality of the gallbladder persists and further imaging is desired, then a nuclear medicine hepatobiliary scan would be recommended. 3. The appearance of the liver does suggest fatty metamorphosis. Dictated by: Dictated on workstation # [id number]
== END ==
LOC: RAD 07:00
PROVIDERS: ATTEND Nurse Practitioner Family
DX: R10.11 Right upper quadrant pain (principal)
CPT/HCPCS: 76705

== ENCOUNTER → 2021-07-03 | Outpatient (CLI) | payer MEDICARE ==
[2021-07-03 11:03] LABS: BASOPHILS % (AUTO) 0 % (0-10); EOSINOPHILS # (AUTO) 0.1 10^3/uL (0.0-0.3); EOSINOPHILS % (AUTO) 1 % (0-10); HEMATOCRIT 40 % (35-52); HEMOGLOBIN 12.7 g/dL (11.5-16.0); LYMPHOCYTES # (AUTO) 2.1 10^3/uL (1.0-4.0); LYMPHOCYTES % (AUTO) 30 % (12-44); MEAN CORPUSCULAR HEMOGLOBIN 30 pg (25-34); MEAN CORPUSCULAR HGB CONC 32 g/dL (32-36); MEAN CORPUSCULAR VOLUME 95 fL (80-99); MEAN PLATELET VOLUME 12.6 fL (9.0-12.2); MONOCYTES # (AUTO) 0.4 10^3/uL (0.0-1.0); MONOCYTES % (AUTO) 6 % (0-12); NEUTROPHILS # (AUTO) 4.3 10^3/uL (1.8-7.8); NEUTROPHILS % (AUTO) 61 % (42-75); PLATELET COUNT 92 10^3/uL (130-400)
[2021-07-03 11:23] LABS: ALBUMIN 3.7 GM/DL (3.2-4.5); BILIRUBIN,TOTAL 0.2 MG/DL (0.1-1.0); CREATININE SERUM 1.34 MG/DL (0.60-1.30); POTASSIUM 4.8 MMOL/L (3.6-5.0); TOTAL PROTEIN 6.5 GM/DL (6.4-8.2)
== END ==
LOC: ONC 10:57
PROVIDERS: ATTEND Internal Medicine Hematology & Oncology
DX: C50.211 Malignant neoplasm of upper-inner quadrant of right female breast (principal); C50.912 Malignant neoplasm of unspecified site of left female breast; C54.1 Malignant neoplasm of endometrium; D69.6 Thrombocytopenia, unspecified; I08.0 Rheumatic disorders of both mitral and aortic valves; K21.9 Gastro-esophageal reflux disease without esophagitis; E11.22 Type 2 diabetes mellitus with diabetic chronic kidney disease; I12.9 Hypertensive chronic kidney disease with stage 1 through stage 4 chronic kidney disease, or unspecified chronic kidney disease; N18.30 Chronic kidney disease, stage 3 unspecified; E66.9 Obesity, unspecified; Z92.21 Personal history of antineoplastic chemotherapy; Z90.12 Acquired absence of left breast and nipple; Z98.890 Other specified postprocedural states; Z92.3 Personal history of irradiation
CPT/HCPCS: 80053; 85025; G0463; 99213

== ENCOUNTER → 2021-08-06 | Outpatient (CLI) | payer MEDICARE | LOC: LABNPT 08:16 | PROVIDERS: ATTEND Family Medicine | DX: Z20.822 Contact with and (suspected) exposure to COVID-19 (principal) | CPT/HCPCS: 87635 ==

== ENCOUNTER → 2021-09-25 | Outpatient (CLI) | payer MEDICARE, OTHER ==
--- NOTE | 2021-09-25 14:42 | Diagnostic Imaging Report ---
INDICATION: Fall with right hip pain. TIME OF EXAM: 12:40 PM Two views of the right hip were obtained. Femoral acetabular alignment is normal. The joint space is well maintained. Femoral head and neck are intact. No fractures are seen. IMPRESSION: No acute abnormality is detected. Dictated by: Dictated on workstation # [id number]
== END ==
LOC: RAD 12:08
PROVIDERS: ATTEND Nurse Practitioner Family
DX: M25.551 Pain in right hip (principal); W19.XXXA Unspecified fall, initial encounter
CPT/HCPCS: 73502

== ENCOUNTER 2021-10-30 18:13 | Emergency (ER) | payer MEDICARE ==
[~2021-10-30] VITALS: Ht 157 cm; Wt 87.0 kg
[2021-10-30] MEDS ORDERED: RT-ALBUTEROL/IPRATROPIUM 3 ML (DUONEB) VIAL INH ONE (18:45)
--- NOTE | 2021-10-30 19:03 | ED Cough/URI ---
General Chief Complaint: Cough/Cold/Flu Symptoms Stated Complaint: COLD GETTING WORSE,SOB Nursing Triage Note: ARRIVED VIA AMB TO ROOM WITH COMPLAINTS OF A SORE THROAT STARTING ON SAT THAT HAS NOW TURNED INTO A BAD COUGH. STATES SHE TOOK A HOME COVID TEST THIS AM AND IT WAS NEG. Source: patient Exam Limitations: no limitations History of Present Illness Date Seen by Provider: Oct 30, 2021 Time Seen by Provider: 18:16 Initial Comments 60-year-old female with past medical history of diabetes, hypertension, hyperlipidemia, long-term smoker coming in due to 1 day of cough that becoming more productive. Taken at home COVID test this morning which was negative. Has an inhaler at home but has not used it in quite some time. Denies any fever, vomiting, diarrhea, abdominal pain, chest pain, shortness of breath, weakness, numbness, rash, or any other concerns. Allergies and Home Medications Allergies Coded Allergies: Penicillins (Verified Allergy, Unknown, 09/17/11) erythromycin base (Verified Allergy, Unknown, 09/17/11) iodine (Unverified Allergy, Unknown, 01/20/14) paclitaxel (Verified Allergy, Unknown, 03/30/12) Patient Home Medication List Home Medication List Reviewed: Yes Cefdinir (Cefdinir) 300 Mg Capsule, 300 MG PO BID Prescribed by: KEE HE on 12/12/182028 Doxycycline Hyclate (Doxycycline Hyclate) 100 Mg Tablet, 100 MG PO BID Prescribed by: TRANG RASHID on 10/30/211940 Famotidine (Pepcid) 20 Mg Tablet, 20 MG PO HS, (Reported) Entered as Reported by: FREYA PALOMARES on 12/24/13 1332 Guaifenesin/Dextromethorphan (Mucinex Dm ER 1,200-60 mg Tab) 1 Each Tbmp.12hr, 1 EACH PO BID Prescribed by: KEE HE on 12/12/182028 Hydrocodone Bit/Acetaminophen (Vicodin 5-300 Mg Tablet) 1 Each Tablet, 1 EACH PO Q4H PRN for PAIN Prescribed by: SAIMA HUITRON on 01/19/15 0831 Hydrocodone/Chlorphen Polis (Tussionex Susp) 5 Ml Susp, 5 ML GT Q12H PRN for COUGH Prescribed by: GABRIELA VASQUEZ on 01/24/152052 Levofloxacin (Levaquin) 750 Mg Tablet, 750 MG PO DAILY Prescribed by: GABRIELA VASQUEZ on 01/24/152052 Methylprednisolone (Medrol) 4 Mg Tab.ds.pk, 4 MG PO UD Prescribed by: KEE HE on 12/12/182028 Prednisone (Prednisone) 20 Mg Tablet, 60 MG PO DAILY Prescribed by: GABRIELA VASQUEZ on 01/24/152052 Tamoxifen Citrate (Tamoxifen Citrate) 20 Mg Tablet, 20 MG PO HS, (Reported) Entered as Reported by: AUSTIN CARBAJAL on 01/20/142052 Review of Systems Review of Systems Constitutional: No chills EENTM: No blurred vision Respiratory: cough Cardiovascular: no symptoms reported Gastrointestinal: no symptoms reported Genitourinary: no symptoms reported Musculoskeletal: no symptoms reported Skin: no symptoms reported Psychiatric/Neurological: No Symptoms Reported Hematologic/Lymphatic: No Symptoms Reported Immunological/Allergic: no symptoms reported All Other Systems Reviewed Negative Unless Noted: Yes Past Qdqcdxm-Gtzyne-Wxokgj Hx Patient Social History Tobacco Use?: Yes Tobacco type used: Cigarettes Smoking Status: Current Everyday Smoker Substance use?: No Alcohol Use?: No Immunizations Up To Date Tetanus Booster (TDap): Less than 5yrs COVID19 Vaccine Resident Assistant: MODERNA Past Medical History Surgeries: Yes Breast, Hysterectomy, Lumpectomy Respiratory: No Cardiac: No Neurological: No Reproductive Disorders: Yes (ENDOMETRIAL CANCER) [employer] HEL[employer] History: Hysterectomy Sexually Transmitted Disease: No HIV/AIDS: No Genitourinary: No Gastrointestinal: Yes Gastroesophageal Reflux, Diverticulosis Musculoskeletal: Yes (L4 AND L5 BULGING AND HERNIATED DISC) Chronic Back Pain Endocrine: Yes Diabetes, Non-Insulin dep HEENT: No Cancer: Yes (BREAST AND ENDOMETRIAL) Breast Did You Recieve Any Treatments: Yes What Type of Treatment Did You: Surgical Intervention Psychosocial: No Integumentary: No Herpes Blood Disorders: No Family Medical History Congestive heart failure 19 FATHER 19 MOTHER Family history: Arthritis 19 FATHER Family history: Cardiovascular disease 19 FATHER 19 MOTHER Family history: Diabetes mellitus 19 FATHER 19 MOTHER Family history: Gastrointestinal disease 19 FATHER History of - respiratory disease 19 FATHER Kidney disease G8 SISTER No Family History of: Abdominal aortic aneurysm Alcoholism Cancer Dementia Family history: Alzheimer's disease Family history: Asthma Family history: Breast disease Family history: Hypertension Family history: Thyroid disorder Heart disease Hereditary disease Myocardial infarction Parkinson's disease Psychotic disorder Seizure disorder Stroke Physical Exam Vital Signs - First Documented 10/30/21 10/30/21 18:20 19:48 Temp 36.3 Pulse 104 Resp 16 B/P (MAP) 152/69 (96) Pulse Ox 94 O2 Delivery Room Air FiO2 21 Capillary Refill : Less Than 3 Seconds Height: 5'2.00" Weight: 194lbs. 0.0oz. 87.535566lq; 35.00 BMI Method:Stated General Appearance: WD/WN, no apparent distress Eyes: Bilateral Eye Normal Inspection HEENT: PERRL/EOMI, normal ENT inspection, pharynx normal Neck: non-tender, full range of motion, supple, normal inspection Respiratory: chest non-tender, lungs clear, normal breath sounds, no respiratory distress, no accessory muscle use Cardiovascular: regular rate, rhythm, no edema, no murmur Gastrointestinal: normal bowel sounds, non tender, soft; No distended, No guarding Extremities: normal range of motion, non-tender, normal inspection, no pedal edema, no calf tenderness, normal capillary refill Neurologic/Psychiatric: no motor/sensory deficits, alert, normal mood/affect Skin: normal color, warm/dry Lymphatic: no adenopathy Progress/Results/Core Measures Suspected Sepsis SIRS Temperature: Pulse: 104 Respiratory Rate: 16 Blood Pressure 152 /69 Mean: 96 Results/Orders Lab Results Laboratory Tests Test 10/30/21 18:48 Range/Units Influenza Type A (RT-PCR) Not Detected Not Detecte Influenza Type B (RT-PCR) Not Detected Not Detecte SARS-CoV-2 RNA (RT-PCR) Not Detected Not Detecte My Orders Orders - TRANG RASHID MD Chest 1 View, Ap/Pa Only (10/30/21 18:40) Covid 19 Inhouse Test (10/30/21 18:40) Influenza A And B By Pcr (10/30/21 18:40) Albuterol/Ipra Inhalation Soln (Duoneb I (10/30/21 18:45) Svn Small Volume Nebulizer (10/30/21 18:40) Doxycycline Hyclate Tablet (Vibramycin T (10/30/21 19:42) Medications Given in ED Current Medications Medications Dose Ordered Sig/Jaelyn Route Start Time Stop Time Status Last Admin Dose Admin Albuterol/ Ipratropium 3 ml ONCE ONCE INH 10/30/21 18:45 10/30/21 18:46 DC 10/30/21 19:47 3 ML Vital Signs/I&O 10/30/21 10/30/21 18:20 19:48 Temp 36.3 Pulse 104 Resp 16 B/P (MAP) 152/69 (96) Pulse Ox 94 O2 Delivery Room Air Room Air FiO2 21 Capillary Refill : Less Than 3 Seconds Blood Pressure Mean: 96 Progress Note : Progress Note 60-year-old female with above history coming in due to more productive cough of 1 day. ABCs were intact and vitals were stable on presentation. Physical exam reassuring with no focal abnormalities and she is well-appearing. I ambulated her around the room and her oxygen maintained around 95%. Covid PCR and flu test obtained as well as chest x-ray. Given DuoNeb treatment given her long- term smoking history to see if this would help. Flu and COVID negative. Chest x-ray with no significant abnormality. Patient continues to be well-appearing. I believe she is stable for discharge with outpatient follow-up. She was sent home with strict return precautions Diagnostic Imaging Diagonstic Imaging: Xray Plain Films/CT/US/NM/MRI: chest Comments NAME: JOSH ELDRIDGE MED REC#: [id number] PT STATUS: REG ER : 1960 PHYSICIAN: TRANG RASHID MD ADMIT DATE: 10/30/21/ER Draft Date of Exam:10/30/21 CHEST 1 VIEW, AP/PA ONLY INDICATION: Sore throat, bad cough COMPARISON: 08/11/2017 FINDINGS: Single view of the chest demonstrates clear lungs bilaterally. The heart is normal. There is no pneumothorax. Osseous structures normal. IMPRESSION: Negative chest Dictated on workstation # [id number] Dict: 10/30/211938 Trans: 10/30/211952 CHUCK [id number] Interpreted by: DHARA ALBERTO Electronically signed by: Departure Impression Primary Impression: Upper respiratory infection Qualified Codes: J06.9 - Acute upper respiratory infection, unspecified Disposition: HOME, SELF-CARE Condition: Stable Departure-Patient Inst. Decision time for Depature: 19:41 Referrals: YINA VENEGAS MD (PCP/Family) Primary Care Physician Patient Instructions: Upper Respiratory Infection ED Add. Discharge Instructions: Given how productive your cough is we will give you some antibiotics to see if this is potentially bacterial. He will take these for the next 5 days. Follow- up with your regular doctor if you are not having improvement after about a week. Scripts Doxycycline Hyclate (Doxycycline Hyclate) 100 Mg Tablet 100 MG PO BID for 5 Days, #10 TAB 0 Refills Prov: TRANG RASHID MD 10/30/21 TRANG RASHID MD Oct 30, 2021 19:03
[2021-10-30] MEDS ORDERED: DOXY100T2 PO (19:41)
[2021-10-30] MEDS ORDERED: DOXYCYCLINE 100 MG (VIBRAMYCIN) TABLET PO STA (19:42)
--- NOTE | 2021-10-30 19:54 | Diagnostic Imaging Report ---
INDICATION: Sore throat, bad cough COMPARISON: 08/11/2017 FINDINGS: Single view of the chest demonstrates clear lungs bilaterally. The heart is normal. There is no pneumothorax. Osseous structures normal. IMPRESSION: Negative chest Dictated by: Dictated on workstation # [id number]
[2021-10-30 19:57] VITALS: BP 142/74
== END 2021-10-30 20:00 | disposition home or self-care (01) ==
LOC: EDUNIT# 18:13 → ER 18:16
DX: J06.9 Acute upper respiratory infection, unspecified (principal); F17.210 Nicotine dependence, cigarettes, uncomplicated; Z20.822 Contact with and (suspected) exposure to COVID-19
CPT/HCPCS: 71045; 87636; 94640

== ENCOUNTER → 2021-11-20 | Outpatient (CLI) | payer MEDICARE ==
[~2021-11-20] MED LIST changes: +DOXY100T2 PO
[2021-11-20 12:53] LABS: ABSOLUTE RETIC # 91 10e9/uL (24-90); BASOPHILS % (AUTO) 0 % (0-10); EOSINOPHILS # (AUTO) 0.1 10^3/uL (0.0-0.3); EOSINOPHILS % (AUTO) 1 % (0-10); HEMATOCRIT 42 % (35-52); HEMOGLOBIN 13.7 g/dL (11.5-16.0); LYMPHOCYTES # (AUTO) 2.6 10^3/uL (1.0-4.0); LYMPHOCYTES % (AUTO) 30 % (12-44); MEAN CORPUSCULAR HEMOGLOBIN 30 pg (25-34); MEAN CORPUSCULAR HGB CONC 33 g/dL (32-36); MEAN CORPUSCULAR VOLUME 94 fL (80-99); MEAN PLATELET VOLUME 11.9 fL (9.0-12.2); MONOCYTES # (AUTO) 0.5 10^3/uL (0.0-1.0); MONOCYTES % (AUTO) 6 % (0-12); NEUTROPHILS # (AUTO) 5.3 10^3/uL (1.8-7.8); NEUTROPHILS % (AUTO) 61 % (42-75); PLATELET COUNT 91 10^3/uL (130-400); RETICULOCYTE % 2.02 % (0.50-2.40); WHITE BLOOD COUNT 8.7 10^3/uL (4.3-11.0)
[2021-11-20 13:31] LABS: BASOPHILS % (MANUAL) 1 %; EOSINOPHILS % (MANUAL) 2 %; LYMPHOCYTES % (MANUAL) 32 %; MONOCYTES % (MANUAL) 3 %; NEUTROPHILS % (MANUAL) 62 %; RBC MORPH NORMAL
== END ==
LOC: LAB 11:56
PROVIDERS: ATTEND Family Medicine
DX: D69.6 Thrombocytopenia, unspecified (principal)
CPT/HCPCS: 36415; 85007; 85027; 85045; 85055

== ENCOUNTER 2021-12-03 20:20 | Emergency (ER) | payer MEDICARE ==
[~2021-12-03] VITALS: Ht 157 cm; Wt 85.0 kg
[2021-12-03 20:36] VITALS: BP 144/84
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
--- NOTE | 2021-12-03 21:31 | Diagnostic Imaging Report ---
CLINICAL HISTORY: Left ankle pain. Injury. COMPARISON: None. TECHNIQUE: 3 views of the left ankle. FINDINGS: There is no acute fracture or dislocation of the left ankle. Alignment is anatomic. The imaged joint spaces are preserved. IMPRESSION: 1. No acute fracture or dislocation in the left ankle. Dictated by: Dictated on workstation # [id number]
== END 2021-12-03 21:49 | disposition home or self-care (01) ==
LOC: EDUNIT# 20:20 → ER 20:22
DX: S90.02XA Contusion of left ankle, initial encounter (principal); S90.32XA Contusion of left foot, initial encounter; F17.210 Nicotine dependence, cigarettes, uncomplicated; V86.25XA Person on outside of 3- or 4- wheeled all-terrain vehicle (ATV) injured in traffic accident, initial encounter
CPT/HCPCS: 73610

== ENCOUNTER → 2021-12-18 | Outpatient (CLI) | payer MEDICARE ==
--- NOTE | 2021-12-18 14:17 | Diagnostic Imaging Report ---
Indication: Routine screening. Comparison is made with prior mammogram 12/14/2020 and 12/14/2019. 2-D and 3-D bilateral screening mammography was performed with CAD. CAD is utilized. The current study was also evaluated with a Computer Aided Detection (CAD) system. Both breasts are heterogeneously dense, limiting the sensitivity of mammography. Post therapeutic changes in the left breast is again noted. There are benign calcifications in both breasts. No discrete mass or malignant-appearing microcalcifications are seen. Axillae are unremarkable. IMPRESSION: BI-RADS Category 2 No mammographic features suspicious for malignancy are identified. ACR BI-RADS Category 2: Benign findings. Result letter will be mailed to the patient. Note: At least 10% of breast cancer is not imaged by mammography. Dictated by: Dictated on workstation # [id number]
== END ==
LOC: RAD 10:15
PROVIDERS: ATTEND Internal Medicine Hematology & Oncology
DX: Z12.31 Encounter for screening mammogram for malignant neoplasm of breast (principal); Z85.3 Personal history of malignant neoplasm of breast
CPT/HCPCS: 77063; 77067

== ENCOUNTER → 2021-12-25 | Outpatient (CLI) | payer MEDICARE ==
--- NOTE | 2021-12-25 16:36 | Diagnostic Imaging Report ---
INDICATION: Cough x 1 week. TECHNIQUE/COMPARISON: PA and lateral films of the chest were obtained at 3:41 PM and compared with 10/30/2021. FINDINGS: The heart and mediastinal silhouette are normal in appearance. The lungs show mild chronic appearing increased interstitial markings. There is no consolidation, pneumothorax, or pleural fluid. IMPRESSION: Mild chronic appearing increased interstitial markings. No acute consolidation, pneumothorax, or pleural fluid. Dictated by: Dictated on workstation # [id number]
== END ==
LOC: RAD 15:22
PROVIDERS: ATTEND Nurse Practitioner Family
DX: R05.9 Cough, unspecified (principal)
CPT/HCPCS: 71046

== ENCOUNTER → 2022-02-27 | Outpatient (CLI) | payer MEDICARE, OTHER | LOC: CARD 12:00 | PROVIDERS: ATTEND Internal Medicine Cardiovascular Disease | DX: I08.0 Rheumatic disorders of both mitral and aortic valves (principal) | CPT/HCPCS: 93306 ==

== ENCOUNTER → 2022-09-23 | Outpatient (CLI) | payer MEDICARE ==
--- NOTE | 2022-09-23 08:52 | Diagnostic Imaging Report ---
PROCEDURE: CT sinuses without contrast TECHNIQUE: Multiple contiguous axial images were obtained through the sinuses without the use of intravenous contrast. Coronal and sagittal reformations were then performed. Auto Exposure Controls were utilized during the CT exam to meet ALARA standards for radiation dose reduction. INDICATION: Chronic sinusitis There is rightward deviation of the nasal septum with leftward nasal septal spurring. No paranasal sinus air-fluid levels identified and the ostiomeatal complexes are patent. There is rounded mural thickening in the floor of the right maxillary sinus possibly related to mucous retention cyst or polyp with component of chronic inflammation. No bone destruction is seen. There are advanced degenerative findings in the temporal mandibular joints. IMPRESSION: Chronic right maxillary sinus disease without acute sinusitis or obstruction identified. Dictated by: Dictated on workstation # [id number]
== END ==
LOC: RAD 08:18
PROVIDERS: ATTEND Nurse Practitioner Family
DX: J32.0 Chronic maxillary sinusitis (principal); R22.0 Localized swelling, mass and lump, head
CPT/HCPCS: 70486

== ENCOUNTER → 2022-11-13 | Outpatient (CLI) | payer MEDICARE ==
[2022-11-13 13:34] LABS: BASOPHILS % (AUTO) 0 % (0-10); EOSINOPHILS # (AUTO) 0.1 10^3/uL (0.0-0.3); EOSINOPHILS % (AUTO) 1 % (0-10); HEMATOCRIT 35 % (35-52)
[2022-11-13 13:36] LABS: HEMOGLOBIN 10.9 g/dL (11.5-16.0); LYMPHOCYTES % (AUTO) 30 % (12-44); MEAN CORPUSCULAR HEMOGLOBIN 27 pg (25-34); MEAN CORPUSCULAR HGB CONC 31 g/dL (32-36); MEAN CORPUSCULAR VOLUME 87 fL (80-99); MEAN PLATELET VOLUME 12.7 fL (9.0-12.2); MONOCYTES # (AUTO) 0.6 10^3/uL (0.0-1.0); MONOCYTES % (AUTO) 9 % (0-12); NEUTROPHILS # (AUTO) 3.9 10^3/uL (1.8-7.8); NEUTROPHILS % (AUTO) 58 % (42-75); PLATELET COUNT 82 10^3/uL (130-400); WHITE BLOOD COUNT 6.7 10^3/uL (4.3-11.0)
== END ==
LOC: LAB 13:12
PROVIDERS: ATTEND Nurse Practitioner Family
DX: D69.6 Thrombocytopenia, unspecified (principal)
CPT/HCPCS: 36415; 85025

== ENCOUNTER → 2022-11-22 | Outpatient (CLI) | payer MEDICARE ==
[2022-11-23 08:28] LABS: ALTERNARIA MOLD RAST <0.10 kU/L (0.00-0.09); RAGWEED RAST <0.10 kU/L (0.00-0.09)
== END ==
LOC: LAB 12:34
PROVIDERS: ATTEND Otolaryngology Otolaryngology/Facial Plastic Surgery
DX: J30.9 Allergic rhinitis, unspecified (principal)
CPT/HCPCS: 36415; 86003

== ENCOUNTER → 2022-11-22 | Outpatient (CLI) | payer MEDICARE ==
[2022-11-22 13:13] LABS: HEMOGLOBIN 10.8 g/dL (11.5-16.0); MEAN PLATELET VOLUME 12.2 fL (9.0-12.2); WHITE BLOOD COUNT 8.1 10^3/uL (4.3-11.0)
[2022-11-22 13:27] LABS: ALBUMIN 4.1 GM/DL (3.2-4.5); CALCIUM 9.1 MG/DL (8.5-10.1); CREATININE SERUM 1.03 MG/DL (0.60-1.30); PHOSPHORUS 3.9 MG/DL (2.3-4.7); POTASSIUM 4.5 MMOL/L (3.6-5.0); URIC ACID 6.5 MG/DL (2.6-7.2)
== END ==
LOC: LAB 12:36
PROVIDERS: ATTEND Internal Medicine Nephrology
DX: I12.9 Hypertensive chronic kidney disease with stage 1 through stage 4 chronic kidney disease, or unspecified chronic kidney disease (principal); N18.2 Chronic kidney disease, stage 2 (mild); E87.5 Hyperkalemia; E83.9 Disorder of mineral metabolism, unspecified
CPT/HCPCS: 36415; 80069; 82570; 82652; 83970; 84156; 84550; 85027

== ENCOUNTER → 2022-12-19 | Outpatient (CLI) | payer MEDICARE ==
--- NOTE | 2022-12-19 14:56 | Diagnostic Imaging Report ---
INDICATION: Routine screening. Comparison is made with prior mammogram 12/18/2021 and 12/14/2020. 2-D and 3-D bilateral screening mammography was performed with CAD. CAD is utilized. The current study was also evaluated with a Computer Aided Detection (CAD) system. Both breasts are heterogeneously dense, limiting the sensitivity of mammography. Post-therapeutic changes left breast are again noted. No residual or recurrent mass is identified. There are benign calcifications present. No malignant-appearing microcalcifications are seen. IMPRESSION: BI-RADS Category 2 No mammographic features suspicious for malignancy are identified. ACR BI-RADS Category 2: Benign findings. Result letter will be mailed to the patient. Note: At least 10% of breast cancer is not imaged by mammography. Dictated by: Dictated on workstation # [id number]
== END ==
LOC: RAD 10:07
PROVIDERS: ATTEND Nurse Practitioner Adult Health
DX: Z12.31 Encounter for screening mammogram for malignant neoplasm of breast (principal)
CPT/HCPCS: 77063; 77067

== ENCOUNTER → 2023-01-06 | Outpatient (CLI) | payer MEDICARE ==
[2023-01-06 12:08] LABS: HEMOGLOBIN 8.1 g/dL (11.5-16.0)
[2023-01-06 12:10] LABS: MEAN PLATELET VOLUME 11.9 fL (9.0-12.2); WHITE BLOOD COUNT 5.2 10^3/uL (4.3-11.0)
[2023-01-06 12:45] LABS: ALBUMIN 3.9 GM/DL (3.2-4.5); POTASSIUM 4.5 MMOL/L (3.6-5.0)
[2023-01-06 12:47] LABS: CALCIUM 9.1 MG/DL (8.5-10.1)
[2023-01-06 12:51] LABS: CREATININE SERUM 1.02 MG/DL (0.60-1.30); PHOSPHORUS 4.5 MG/DL (2.3-4.7)
== END ==
LOC: LAB 11:46
PROVIDERS: ATTEND Internal Medicine Nephrology
DX: I12.9 Hypertensive chronic kidney disease with stage 1 through stage 4 chronic kidney disease, or unspecified chronic kidney disease (principal); N18.2 Chronic kidney disease, stage 2 (mild); D63.1 Anemia in chronic kidney disease; E87.5 Hyperkalemia
CPT/HCPCS: 36415; 80069; 82607; 82728; 82746; 83540; 83550; 85027

== ENCOUNTER 2023-01-16 14:04 | Outpatient (CLI) | payer MEDICARE ==
[~2023-01-16] VITALS: Ht 157.5 cm; Wt 93.1 kg
[2023-01-16] MEDS ORDERED: HYDR-3817 PO (16:07)
[2023-01-16] MEDS ORDERED: PIOG15TA67 PO (16:07)
[2023-01-16] MEDS ORDERED: GLIM2TAB4 PO (16:07)
[2023-01-16] MEDS ORDERED: BACL20TA PO (16:07)
[2023-01-16] MEDS ORDERED: PANT20TA18 PO (16:07)
[2023-01-16] MEDS ORDERED: MELA5CAP PO (16:07)
[2023-01-16] MEDS ORDERED: IRBE75TA9 PO (16:07)
[2023-01-16] MEDS ORDERED: FAMO20TA3 PO (16:07)
[2023-01-16] MEDS ORDERED: SITA50TA PO (16:07)
== END 2023-01-16 16:10 | disposition home or self-care (01) ==
LOC: PREOP 14:04
PROVIDERS: ATTEND Surgery
DX: Z01.818 Encounter for other preprocedural examination (principal); K21.9 Gastro-esophageal reflux disease without esophagitis; R19.5 Other fecal abnormalities

== ENCOUNTER 2023-01-24 10:45 | Day surgery (SDC) | payer MEDICARE ==
[~2023-01-24] VITALS: Ht 157.5 cm; Wt 93.1 kg
[~2023-01-24 10:45] MED LIST changes: +BACL20TA PO; +FAMO20TA3 PO; +GLIM2TAB4 PO; +HYDR-3817 PO; +IRBE75TA9 PO; +MELA5CAP PO; +PANT20TA18 PO; +PIOG15TA67 PO; +SITA50TA PO
[2023-01-24] MEDS ORDERED: LACTATED RINGERS 1,000 ML IV STA (10:56)
[2023-01-24] MEDS ORDERED: LACTATED RINGERS 1,000 ML IV ONE (10:57)
[2023-01-24] MEDS ORDERED: HURRICAINE EXT TUBE (BENZOCAINE) XX PRN (11:00)
[2023-01-24 11:15] VITALS: BP 131/70
[2023-01-24] MEDS ORDERED: ceFAZolin INJECTION 1,000 MG in NS (IVPB) 50 ML IV ONE (13:00)
--- NOTE | 2023-01-24 13:26 | Progress Note-Pre Operative ---
Pre-Operative Progress Note Date H&P Reviewed: Jan 24, 2023 Time H&P Reviewed: 13:26 History & Physical: H&P Reviewed, Patient Examed, No changes noted Pre-Operative Diagnosis: gerd, occult + stool SAIMA HUITRON DO Jan 24, 2023 13:26
[2023-01-24] MEDS ORDERED: PROPOFOL INJECTION 50 ML IV ONE ×2 (14:02→15:24)
--- NOTE | 2023-01-24 15:33 | Discharge Inst-Simple/Standard ---
Discharge Inst-Standard Patient Instructions/Follow Up Plan of Care/Instructions/FU: 2 weeks [place] Activity as Tolerated: Yes Discharge Diet: Regular Diet (high fiber) SAIMA HUITRON DO Jan 24, 2023 15:33
[2023-01-24 15:35] VITALS: BP 100/48
[2023-01-24 15:40] VITALS: BP 120/56
[2023-01-24 16:10] VITALS: BP 124/52
[2023-01-24 16:20] VITALS: BP 124/52
--- NOTE | 2023-01-24 16:37 | Anesthesia-General Post-Op ---
MAC Patient Condition Mental Status/LOC: Same as Preop Cardiovascular: Satisfactory Nausea/Vomiting: Absent Respiratory: Satisfactory Pain: Controlled Complications: Absent Post Op Complications Complications None Follow Up Care/Instructions Patient Instructions None needed. Anesthesiology Discharge Order Discharge Order Patient is doing well, no complaints, stable vital signs, no apparent adverse anesthesia problems. No complications reported per nursing. CARLTON ROMAN CRNA Jan 24, 2023 16:37
--- NOTE | 2023-01-24 19:15 | OPERATIVE REPORT ---
DATE OF SERVICE: 01/24/2023 PREOPERATIVE DIAGNOSIS: Occult positive stool and gastroesophageal reflux disease. POSTOPERATIVE DIAGNOSES: Small hiatal hernia, diverticulosis, colon polyps x2. SURGEON: Saima Agustin DO ANESTHESIA: Per BRUSH MACHINE SETTER. ESTIMATED BLOOD LOSS: None. COMPLICATIONS: None. PROCEDURES: EGD with biopsies, colonoscopy with hot biopsy polypectomy x2. INDICATIONS: The patient is a 62-year-old female with GERD symptoms and had occult positive stools. She understands risks and benefits of procedures and wishes to proceed. Consent was signed in chart. DESCRIPTION OF PROCEDURE: The patient was taken to endoscopy suite, placed in left lateral recumbent position. A timeout was performed. Scope was inserted in the mouth, down the esophagus, stomach and into the duodenum without difficulty. No polyps, masses or ulcerations within the duodenum. Scope was slowly retracted back into stomach where it was further insufflated. No polyps, masses or ulcerations. Biopsy of the antrum was obtained. Scope was retroflexed noting small hiatal hernia, no other pathology. Scope was returned to its normal position, slowly withdrawn until distal esophagus. Biopsy of GE junction was obtained. No polyps, masses or ulcerations. Scope was slowly retracted back until completely removed. Digital rectal exam was performed. No palpable polyps, masses or ulcerations. Scope was inserted in the rectum and advanced all the way to the cecum with minimal difficulty. Prep was adequate with irrigation and suction. Scope was then slowly retracted back. No polyps, masses or ulcerations in the cecum. In the ascending colon, a polyp was present, which hot biopsy polypectomy was performed. Scope was then continued to be slowly retracted back. No polyps, masses or ulcerations in the remainder of the ascending, transverse and descending colon. In the sigmoid colon, another small polyp was present, which hot biopsy polypectomy was performed. Scope was then continuously retracted back. Throughout the colon, diverticulosis present, minimal amount. Once in the rectum, scope was retroflexed noting no other pathology. Scope was returned to its normal position, slowly withdrawn until completely removed. The patient tolerated the procedure well without complications, taken to recovery room in stable condition. RECOMMENDATIONS: The patient will need repeat colonoscopy in 5 years. Any issues before that, be seen at that time. The patient to continue on current medications. We will follow up on pathology with diverticulosis, recommend high fiber diet. Job ID: [id number] DocumentID: [id number] Dictated Date: 01/24/2023 15:39:57 Shipyard Painting Supervisor Date: 01/24/2023 19:13:00 Dictated By: SAIMA AGUSTIN DO
[2023-01-25] MEDS ORDERED: BACL10TA (22:18)
[2023-01-25] MEDS ORDERED: SITA100T12 (22:18)
[2023-01-25] MEDS ORDERED: PANT40TA52 (22:18)
== END 2023-01-24 16:20 | disposition home or self-care (01) ==
LOC: ENDO 10:45
PROVIDERS: ATTEND Surgery
DX: Z12.11 Encounter for screening for malignant neoplasm of colon (principal); D12.2 Benign neoplasm of ascending colon; K63.5 Polyp of colon; K57.30 Diverticulosis of large intestine without perforation or abscess without bleeding; K29.50 Unspecified chronic gastritis without bleeding; K21.00 Gastro-esophageal reflux disease with esophagitis, without bleeding; K44.9 Diaphragmatic hernia without obstruction or gangrene; K31.89 Other diseases of stomach and duodenum; E11.9 Type 2 diabetes mellitus without complications; E66.9 Obesity, unspecified; F17.210 Nicotine dependence, cigarettes, uncomplicated; Z85.3 Personal history of malignant neoplasm of breast; Z79.84 Long term (current) use of oral hypoglycemic drugs; Z85.42 Personal history of malignant neoplasm of other parts of uterus; Z68.37 Body mass index [BMI] 37.0-37.9, adult; Z79.899 Other long term (current) drug therapy
CPT/HCPCS: 82947; 88305

== ENCOUNTER 2023-01-25 22:02 | Emergency (ER) | payer MEDICARE ==
[~2023-01-25] VITALS: Ht 157 cm; Wt 85.0 kg
[2023-01-25] MEDS ORDERED: SITA100T12 (22:18)
[2023-01-25] MEDS ORDERED: PANT40TA52 (22:18)
[2023-01-25] MEDS ORDERED: BACL10TA (22:18)
[2023-01-25] MEDS ORDERED: PIPERACILLIN SODIUM/TAZOBACTAM 4.5 GM in NS (IVPB) 100 ML IV ONE (22:45)
[2023-01-25] MEDS ORDERED: NS IV 1000 ML 1,000 ML IV SCH (22:45)
--- NOTE | 2023-01-25 22:52 | ED General ---
General Chief Complaint: Post OP Complications/Pain Stated Complaint: ABD PAIN/CRAMPING NAUSEA Nursing Triage Note: C/O INTERMITTANT LOWER ABDOMINAL CRAMPING, NAUSEA, FEVER, ORANGE DIARRHEA SINCE 1300 TODAY. REPORTS EGD/COLONOSCOPY 01/24/23 WITH POLYP REMOVAL. Source of Information: Patient History of Present Illness Date Seen by Provider: Jan 25, 2023 Time Seen by Provider: 22:35 Initial Comments PT ARRIVES VIA POV FROM HOME PT STATES SHE HAD EGD AND COLONOSCOPY DONE YESTERDAY BY DR. HUITRON FOR ANEMIA, AND OCCULT GI BLOOD LOSS. SHE HAD SOME POLYPS REMOVED. TODAY SHE HAS BEEN HAVING NAUSEA, AND DIFFUSE LOWER ABDOMINAL AND PAIN ALL ALONG BOTH SIDES OF ABDOMEN. SHE HAS ALSO BEEN RUNNING FEVER ALL DAY TODAY UP TO 101. SHE TOOK HER MORNING MEDICATIONS SHE ATE GRAPEFRUIT WITH 2 PIECES OF TOAST THIS MORNING, SOME GOLDFISH CRACKERS THIS AFTERNOON AND A BAKED POTATO WITH BUTTER, CHEDDAR AND RANCH DRESSING TONIGHT. SHE IS URINATING NORMALLY AND HAS NO URINARY SYMPTOMS PT HAS HTN, AORTIC AND MITRAL STENOSIS, DIVERTICULAR DISEASE, NON -INSULIN DEPENDENT DIABETES, STAGE 2 KIDNEY DISEASE. SHE HAS HAD LEFT BREAST CANCER IN 2011, AND ENDOMETRIAL CANCER IN 2013. SHE STATES HER HEMOGLOBIN LAST WEEK WAS 7.8, AND WHICH PROMPTED THE ENDOSCOPIES YESTERDAY. SHE IS NOT ON ASPIRIN OR BLOOD THINNERS Allergies and Home Medications Allergies Coded Allergies: erythromycin base (Verified Allergy, Unknown, 09/17/11) iodine (Unverified Allergy, Unknown, 01/20/14) paclitaxel (Verified Allergy, Unknown, 03/30/12) Patient Home Medication List Baclofen (Baclofen) 20 Mg Tablet, 20 MG PO TID, (Reported) Entered as Reported by: ALVIN WARD on 01/16/23 160 Baclofen (Baclofen) 10 Mg Tablet, (Reported) Entered as Reported by: NATO ALEJO on 01/25/232217 Last Action: New Order Famotidine (Acid Litigator (FAMOTIDINE)) 20 Mg Tablet, 20 MG PO DAILY, (Reported) Entered as Reported by: ALVIN WARD on 01/16/23 160 Glimepiride (Glimepiride) 2 Mg Tablet, 2 MG PO DAILY, (Reported) Entered as Reported by: ALVIN WARD on 01/16/23 160 Hydrocodone/Acetaminophen (Hydrocodone-Acetamin 7.5-325) 7.5 Mg-325 Mg Tablet, 1 EACH PO BID PRN PRN for PAIN-BREAKTHROUGH, (Reported) Entered as Reported by: ALVIN WARD on 01/16/231606 Irbesartan (Irbesartan) 75 Mg Tablet, 75 MG PO DAILY, (Reported) Entered as Reported by: ALVIN WARD on 01/16/231606 Melatonin (Melatonin) 5 Mg Capsule, 5 MG PO DAILY, (Reported) Entered as Reported by: ALVIN WARD on 01/16/231606 Pantoprazole Sodium (Pantoprazole Sodium) 20 Mg Tablet.dr, 20 MG PO DAILY, (Reported) Entered as Reported by: ALVIN WARD on 01/16/231606 Pantoprazole Sodium (Pantoprazole Sodium) 40 Mg Tablet.dr, (Reported) Entered as Reported by: NATO ALEJO on 01/25/232217 Last Action: New Order Pioglitazone HCl (Pioglitazone HCl) 15 Mg Tablet, 5 MG PO DAILY, (Reported) Entered as Reported by: ALVIN WARD on 01/16/231606 Sitagliptin Phosphate (Januvia) 50 Mg Tablet, 75 MG PO DAILY, (Reported) Entered as Reported by: ALVIN WARD on 01/16/231606 Sitagliptin Phosphate (Januvia) 100 Mg Tablet, (Reported) Entered as Reported by: NATO ALEJO on 01/25/232217 Last Action: New Order Past Akahaih-Xlfblu-Ytaqan Hx Patient Social History Tobacco Use?: Yes Substance use?: No Alcohol Use?: No Pt feels they are or have been: No Immunizations Up To Date Tetanus Booster (TDap): Less than 5yrs First/Initial COVID19 Vaccinat: 10/11/20 Second COVID19 Vaccination Humza: 11/09/20 Third COVID19 Vaccination Date: 06/11/21 Past Medical History Surgery/Hospitalization HX: PMH;DM, HYPERTENSION, CKD STAGE 3, HYPERKALEMIA, HX OF BREAST AND ENDO. CANCER. SURGERIES;HYST. 2014, HIP REPLACEMENT 04/2020, LUMP ECTOMY 2011, TATOO REMOVAL 2001. 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 Sexually Transmitted Disease: No HIV/AIDS: No Genitourinary: No Gastrointestinal: Yes Gastroesophageal Reflux, Diverticulosis Musculoskeletal: Yes (L4 AND L5 BULGING AND HERNIATED DISC) Chronic Back Pain Endocrine: Yes Diabetes, Non-Insulin dep HEENT: No Cancer: Yes (BREAST AND ENDOMETRIAL) Breast Did You Recieve Any Treatments: Yes What Type of Treatment Did You: Chemotherapy, Radiation, Surgical Intervention Psychosocial: No Integumentary: No Herpes Blood Disorders: No Family Medical History Congestive heart failure 19 FATHER 19 MOTHER Family history: Arthritis 19 FATHER Family history: Cardiovascular disease 19 FATHER 19 MOTHER Family history: Diabetes mellitus 19 FATHER 19 MOTHER Family history: Gastrointestinal disease 19 FATHER History of - respiratory disease 19 FATHER Kidney disease G8 SISTER No Family History of: Abdominal aortic aneurysm Alcoholism Cancer Dementia Family history: Alzheimer's disease Family history: Asthma Family history: Breast disease Family history: Hypertension Family history: Thyroid disorder Heart disease Hereditary disease Myocardial infarction Parkinson's disease Psychotic disorder Seizure disorder Stroke Physical Exam Vital Signs Vital Signs - First Documented 01/25/23 22:11 Temp 36.7 Pulse 103 Resp 16 B/P (MAP) 155/80 (105) Pulse Ox 100 O2 Delivery Room Air Capillary Refill : Less Than 3 Seconds Height, Weight, BMI Height: 5'2.00" Weight: 194lbs. 0.0oz. 87.667498gc; 34.00 BMI Method:Stated Focused Exam Lactate Level 01/25/23 22:45: Lactic Acid Level 1.35 Lactic Acid Level Laboratory Tests Test 01/25/23 22:45 Lactic Acid Level 1.35 MMOL/L (0.50-2.00) Progress/Results/Core Measures Suspected Sepsis SIRS Temperature: Pulse: 103 Respiratory Rate: 16 Laboratory Tests 01/25/23 22:45: White Blood Count 7.1 Blood Pressure 155 /80 Mean: 105 01/25/23 22:45: Lactic Acid Level 1.35 Laboratory Tests 01/25/23 22:45: Creatinine 0.99, INR Comment 1.0, Platelet Count 71L, Total Bilirubin 0.4 Results/Orders Lab Results Laboratory Tests Test 01/25/23 22:40 01/25/23 22:45 Range/Units Urine Color YELLOW Urine Clarity CLEAR Urine pH 6.0 5-9 Urine Specific [place] 1.020 1.016-1.022 Urine Protein NEGATIVE NEGATIVE Urine Glucose (UA) NEGATIVE NEGATIVE Urine Ketones NEGATIVE NEGATIVE Urine Nitrite NEGATIVE NEGATIVE Urine Bilirubin NEGATIVE NEGATIVE Urine Urobilinogen 0.2 < = 1.0 MG/DL Urine Leukocyte Esterase NEGATIVE NEGATIVE Urine RBC (Auto) NEGATIVE NEGATIVE Urine RBC NONE /HPF Urine WBC NONE /HPF Urine Squamous Epithelial Cells RARE /HPF Urine Crystals NONE /LPF Urine Bacteria NEGATIVE /HPF Urine Casts NONE /LPF Urine Mucus NEGATIVE /LPF Urine Culture Indicated CULTURE PENDING White Blood Count 7.1 4.3-11.0 10^3/uL Red Blood Count 3.59 L 3.80-5.11 10^6/uL Hemoglobin 9.1 L 11.5-16.0 g/dL Hematocrit 31 L 35-52 % Mean Corpuscular Volume 85 80-99 fL Mean Corpuscular Hemoglobin 25 25-34 pg Mean Corpuscular Hemoglobin Concent 30 L 32-36 g/dL Red Cell Distribution Width 21.3 H 10.0-14.5 % Platelet Count 71 L 130-400 10^3/uL Mean Platelet Volume 12.2 9.0-12.2 fL Immature Granulocyte % (Auto) 1 % Neutrophils (%) (Auto) 63 42-75 % Lymphocytes (%) (Auto) 28 12-44 % Monocytes (%) (Auto) 7 0-12 % Eosinophils (%) (Auto) 1 0-10 % Basophils (%) (Auto) 0 0-10 % Neutrophils # (Auto) 4.4 1.8-7.8 10^3/uL Lymphocytes # (Auto) 2.0 1.0-4.0 10^3/uL Monocytes # (Auto) 0.5 0.0-1.0 10^3/uL Eosinophils # (Auto) 0.1 0.0-0.3 10^3/uL Basophils # (Auto) 0.0 0.0-0.1 10^3/uL Immature Granulocyte # (Auto) 0.1 0.0-0.1 10^3/uL Percent Immature Platelet Fraction 12.2 H 0.0-7.6 % Erythrocyte Sedimentation Rate 19 0-30 MM/HR Prothrombin Time 13.6 12.2-14.7 SEC INR Comment 1.0 0.8-1.4 Activated Partial Thromboplast Time 33 24-35 SEC Sodium Level 141 135-145 MMOL/L Potassium Level 4.0 3.6-5.0 MMOL/L Chloride Level 109 H 98-107 MMOL/L Carbon Dioxide Level 21 21-32 MMOL/L Anion Gap 11 5-14 MMOL/L Blood Urea Nitrogen 12 7-18 MG/DL Creatinine 0.99 0.60-1.30 MG/DL Estimat Glomerular Filtration Rate 64 BUN/Creatinine Ratio 12 Glucose Level 112 H 70-105 MG/DL Lactic Acid Level 1.35 0.50-2.00 MMOL/L Calcium Level 9.3 8.5-10.1 MG/DL Corrected Calcium 9.2 8.5-10.1 MG/DL Magnesium Level 1.9 1.6-2.4 MG/DL Total Bilirubin 0.4 0.1-1.0 MG/DL Aspartate Amino Transf (AST/SGOT) 28 5-34 U/L Alanine Aminotransferase (ALT/SGPT) 23 0-55 U/L Alkaline Phosphatase 117 40-136 U/L C-Reactive Protein High Sensitivity 0.32 0.00-0.50 MG/DL Total Protein 7.0 6.4-8.2 GM/DL Albumin 4.1 3.2-4.5 GM/DL Amylase Level 71 25-125 U/L Lipase 28 8-78 U/L My Orders Orders - KEE HE DO Ed Iv/Invasive Line Start (01/25/23 22:41) Monitor-Rhythm Ecg Trace Only (01/25/23 22:41) Amylase (01/25/23 22:41) Cbc With Automated Diff (01/25/23 22:41) Comprehensive Metabolic Panel (01/25/23 22:41) Hs C Reactive Protein (01/25/23 22:41) Lactic Acid Analyzer (01/25/23 22:41) Lipase (01/25/23 22:41) Magnesium (01/25/23 22:41) Protime With Inr (01/25/23 22:41) Partial Thromboplastin Time (01/25/23 22:41) Ua Culture If Indicated (01/25/23 22:41) Blood Culture (01/25/23 22:41) Erythrocyte Sedimentation Rate (01/25/23 22:41) Ed Iv/Invasive Line Start (01/25/23 22:41) Ns Iv 1000 Ml (Sodium Chloride 0.9%) (01/25/23 22:45) Urine Culture (01/25/23 22:41) Chest 1 View, Ap/Pa Only (01/25/23 22:41) Ed Iv/Invasive Line Start (01/25/23 22:41) Vital Signs Adult Sepsis Patie Q15M (01/25/23 22:41) Remove Rings In Anticipation O (01/25/23 22:41) Piperacillin Sodium/Tazobactam (Zosyn Vi (01/25/23 22:45) Methylprednisolone Sod Succ (Solu-Medrol (01/26/23 00:00) Diphenhydramine Injection (Benadryl Inje (01/26/23 00:00) Famotidine Injection (Pepcid Injection) (01/26/23 00:00) Ct Abdomen/Pelvis W (01/26/23 00:01) Iohexol Injection (Omnipaque 350 Mg/Ml 1 (01/26/23 01:15) Received Contrast (Hold Metformin- Contr (01/26/23 01:15) Ns (Ivpb) (Sodium Chloride 0.9% Ivpb Bag (01/26/23 01:15) Medications Given in ED Current Medications Medications Dose Ordered Sig/Jaelyn Route Start Time Stop Time Status Last Admin Dose Admin Diphenhydramine HCl 50 mg ONCE ONCE IVP 01/26/23 00:00 01/26/23 00:01 DC 01/25/23 23:54 50 MG Famotidine 40 mg ONCE ONCE IVP 01/26/23 00:00 01/26/23 00:01 DC 01/25/23 23:54 40 MG Iohexol 100 ml ONCE ONCE IV 01/26/23 01:15 01/26/23 01:16 DC 01/26/23 01:09 80 ML Methylprednisolone Sodium Succinate 125 mg ONCE ONCE IVP 01/26/23 00:00 01/26/23 00:01 DC 01/25/23 23:54 125 MG Piperacillin Sod/ Tazobactam Sod 4.5 gm/Sodium Chloride 100 ml @ 200 mls/hr ONCE ONCE IV 01/25/23 22:45 01/25/23 23:14 DC 01/25/23 22:56 200 MLS/HR Sodium Chloride 100 ml ONCE ONCE IV 01/26/23 01:15 01/26/23 01:16 DC 01/26/23 01:09 80 ML Vital Signs/I&O 7/8/23 22:11 Temp 36.7 Pulse 103 Resp 16 B/P (MAP) 155/80 (105) Pulse Ox 100 O2 Delivery Room Air 01/25/23 23:59 Intake Total 1100 ml Balance 1100 ml Capillary Refill : Less Than 3 Seconds Blood Pressure Mean: 105 Progress Note : Progress Note PT STATES SHE HAS HAD IV CONTRAST BEFORE, AND LONG SHE IS PRE-MEDICATED, SHE DOES NOT HAVE PROBLEMS SHE STATES THAT SHE HAS HAD AN ITCHY RASH FROM IV CONTRAST WHEN SHE IS NOT PRE- MEDICATED. Departure Impression Primary Impression: POST PROCEDURES PAIN AND FEVER Disposition: HOME, SELF-CARE Condition: Stable Departure-Patient Inst. Decision time for Depature: 01:34 Referrals: BARON ZAMORA MD (PCP) Primary Care Physician CARLEEN FREED (Family) Primary Care Physician SAIMA HUITRON DO Patient Instructions: Abdominal Pain, Adult ED Add. Discharge Instructions: CLEAR LIQUIDS--WATER, BROTH, JELLO, GATORADE BRATS DIET--BANANAS, RICE, APPLESAUCE, TOAST, SALTINES FOLLOW UP WITH DR. HUITRON ON FRIDAY FOR FURTHER CARE, RETURN TO ER IF SYMPTOMS WORSEN Scripts Ondansetron (Ondansetron Odt) 8 Mg Tab.rapdis 8 MG PO Q6H, #10 TAB Prov: KEE HE DO 01/26/23 Dicyclomine HCl (Dicyclomine HCl) 20 Mg Tablet 20 MG PO Q6H for Abdominal Pain, #20 TAB Prov: KEE HE DO 01/26/23 KEE HE DO Jan 25, 2023 22:52
[2023-01-25 23:14] LABS: BILIRUBIN,URINE NEGATIVE (NEGATIVE); CLARITY,URINE CLEAR; COLOR,URINE YELLOW; GLUCOSE, URINE (UA) NEGATIVE (NEGATIVE); KETONES,URINE NEGATIVE (NEGATIVE); LEUKOCYTE ESTERASE ,URINE NEGATIVE (NEGATIVE); NITRITE,URINE NEGATIVE (NEGATIVE); PROTEIN,URINE NEGATIVE (NEGATIVE)
[2023-01-25 23:16] LABS: BASOPHILS % (AUTO) 0 % (0-10); HEMOGLOBIN 9.1 g/dL (11.5-16.0)
[2023-01-25 23:18] LABS: EOSINOPHILS # (AUTO) 0.1 10^3/uL (0.0-0.3); EOSINOPHILS % (AUTO) 1 % (0-10); HEMATOCRIT 31 % (35-52); LYMPHOCYTES % (AUTO) 28 % (12-44); MEAN CORPUSCULAR HEMOGLOBIN 25 pg (25-34); MEAN CORPUSCULAR HGB CONC 30 g/dL (32-36); MEAN CORPUSCULAR VOLUME 85 fL (80-99); MEAN PLATELET VOLUME 12.2 fL (9.0-12.2); MONOCYTES # (AUTO) 0.5 10^3/uL (0.0-1.0); MONOCYTES % (AUTO) 7 % (0-12); NEUTROPHILS # (AUTO) 4.4 10^3/uL (1.8-7.8); NEUTROPHILS % (AUTO) 63 % (42-75); PLATELET COUNT 71 10^3/uL (130-400); WHITE BLOOD COUNT 7.1 10^3/uL (4.3-11.0)
[2023-01-25 23:30] LABS: PROTHROMBIN TIME PATIENT 13.6 SEC (12.2-14.7)
[2023-01-25 23:34] LABS: ALBUMIN 4.1 GM/DL (3.2-4.5); BILIRUBIN,TOTAL 0.4 MG/DL (0.1-1.0); CALCIUM 9.3 MG/DL (8.5-10.1); CREATININE SERUM 0.99 MG/DL (0.60-1.30); MAGNESIUM 1.9 MG/DL (1.6-2.4)
[2023-01-25 23:58] LABS: ERYTHROCYTE SEDIMENTATION RATE 19 MM/HR (0-30)
[2023-01-26] LABS: BACTERIA,URINE NEGATIVE /HPF; SQUAMOUS EPITHELIAL CELL,UR RARE /HPF
[2023-01-26] MEDS ORDERED: FAMOTIDINE 20MG/2ML IV (PEPCID) IVP ONE
[2023-01-26] MEDS ORDERED: methylPREDNISolone 125 MG (Solu-MEDROL) VIAL IVP ONE
[2023-01-26] MEDS ORDERED: diphenhydrAMINE 50 MG/ML INJ (BENADRYL) IVP ONE
[2023-01-26] MEDS ORDERED: IOHEXOL 350 MG/ML 100 ML (OMNIPAQUE 350) VIAL IV ONE (01:15)
[2023-01-26] MEDS ORDERED: HOLD METFORMIN - RECEIVED CONTRAST 20 ML VIAL IV SCH (01:15)
[2023-01-26] MEDS ORDERED: NS 100 ML (IVPB) BAG IV ONE (01:15)
[2023-01-26] MEDS ORDERED: ONDA8TAB13 PO (01:41)
[2023-01-26] MEDS ORDERED: RX-ONDANSETRON 4 MG ODT (ZOFRAN) PPK #4 PO STA (01:41)
[2023-01-26] MEDS ORDERED: DICY20TA PO (01:41)
[2023-01-26] MEDS ORDERED: RX-DICYCLOMINE 10 MG (BENTYL) CAP PPK#4 PO STA (01:41)
[2023-01-26 01:46] VITALS: BP 136/89
--- NOTE | 2023-01-26 06:49 | Diagnostic Imaging Report ---
PROCEDURE: CT abdomen and pelvis with contrast. TECHNIQUE: Multiple contiguous axial images were obtained through the abdomen and pelvis after administration of intravenous contrast. Auto Exposure Controls were utilized during the CT exam to meet ALARA standards for radiation dose reduction. All CT scans use one or more of the following dose optimizing techniques: automated exposure control, MA and/or KvP adjustment based on patient size and exam type or iterative reconstruction. DATE: January 26, 2023. INDICATION: 62-year-old female, status post colonoscopy. Abdominal pain and fever. COMPARISON: CT chest and abdomen July 31, 2020. CT chest, abdomen and pelvis March 20, 2018. FINDINGS: There is mild peripheral atelectasis in the right middle lobe and right lower lobe. The heart is not enlarged. There is no identified pericardial effusion. The outer liver contours are mildly nodular compatible with cirrhosis. There is no identified focal liver lesion. The main, right, and left portal veins are patent. The gallbladder is unremarkable. There is no intrahepatic or extrahepatic bile duct dilation. The main pancreatic duct is not abnormally dilated. Unremarkable appearance of the pancreatic parenchyma. The spleen is normal in size. The adrenal glands are unremarkable. There is a 3 mm low-attenuation right renal lesion on axial image 55 too small to characterize. The urinary collecting systems are not distended. There is no identified renal or ureteral stone. The urinary bladder is unremarkable. The uterus is not seen and may be surgically absent. There is mild diverticulosis without evidence of acute diverticulitis. The appendix is unremarkable. There is no free intraperitoneal air. There is no drainable fluid collection. There is no free fluid in the abdomen or pelvis. There are atherosclerotic calcifications. There is no identified abnormally enlarged lymph node in the abdomen or pelvis which meets CT size criteria for adenopathy. There is a left total hip prosthesis. There are multilevel degenerative changes of the spine. There is grade 1 anterolisthesis of L4 on L5. IMPRESSION: 1. No identified acute abnormality in the abdomen or pelvis. 2. Cirrhosis. Dictated by: Dictated on workstation # [id number]
--- NOTE | 2023-01-26 08:43 | Diagnostic Imaging Report ---
EXAMINATION: Chest radiograph, portable AP view. DATE: 01/25/2023 11:33 PM INDICATION: 62-year-old female, fever. Chest pain. COMPARISON: October 30, 2021. FINDINGS: Heart size and mediastinal contours are unchanged. There is no identified pneumothorax. There is no large pleural effusion. There is no identified focal airspace consolidation. IMPRESSION: 1. No identified acute cardiopulmonary abnormality. Dictated by: Dictated on workstation # [id number]
== END 2023-01-26 01:49 | disposition home or self-care (01) ==
LOC: EDUNIT# 22:02 → ER 22:04
DX: G89.18 Other acute postprocedural pain (principal); R10.32 Left lower quadrant pain; R10.31 Right lower quadrant pain; R50.82 Postprocedural fever; Z72.0 Tobacco use
CPT/HCPCS: 36415; 71045; 74177; 80053; 81000; 82150; 83605; 83690; 83735; 85025; 85610; 85652; 85730; 86141; 87040; 87088; 93041

== ENCOUNTER 2023-02-25 20:29 | Emergency (ER) | payer MEDICARE ==
[~2023-02-25] VITALS: Ht 155 cm; Wt 90.3 kg
[~2023-02-25 20:29] MED LIST changes: +BACL10TA; +DICY20TA PO; +PANT40TA52; +SITA100T12
[2023-02-25 21:13] VITALS: BP 166/64
--- NOTE | 2023-02-25 21:25 | ED Lower Extremity ---
General Chief Complaint: Lower Extremity Stated Complaint: LEFT KNEE/LEG PAIN Source: patient Exam Limitations: no limitations (TRANG SAHU) History of Present Illness Date Seen by Provider: Feb 25, 2023 Time Seen by Provider: 21:22 Initial Comments Patient is a 62-year-old female who presents ED with left knee and left femur pain. Patient states around 4 PM she was carrying her granddaughter when she walked around the [place] felt a sharp pain in her lower hamstring and left lateral knee. Hope like the knee gave out at the time. She was able to sit down on the chair. She states after the injury she started having increasing pain and tightness to her left posterior hamstring, lateral hamstring and knee. She states when she walks with a cane she feels like her left knee wants to give out. History of left total hip replacement. Patient denies of any obvious swelling or bruising. She denies of any falls. She does have hydrocodone and b aclofen at home she takes for chronic back pain and currently in physical therapy. She denies fever, chills, bowel or urine incontinence, saddle paresthesia, headache, dizziness (TRANG SAHU) Allergies and Home Medications Allergies Coded Allergies: erythromycin base (Verified Allergy, Unknown, 09/17/11) iodine (Unverified Allergy, Unknown, 01/20/14) paclitaxel (Verified Allergy, Unknown, 03/30/12) Patient Home Medication List Home Medication List Reviewed: Yes (TRANG SAHU) Home Medication List Reviewed: Yes (BETTY CONDE MD) Baclofen (Baclofen) 20 Mg Tablet, 20 MG PO TID, (Reported) Entered as Reported by: ALVIN WARD on 01/16/23 1607 Baclofen (Baclofen) 10 Mg Tablet, (Reported) Entered as Reported by: NATO ALEJO on 01/25/238 Dicyclomine HCl (Dicyclomine HCl) 20 Mg Tablet, 20 MG PO Q6H Prescribed by: KEE HE on 01/26/23 0141 Famotidine (Acid Coating And Embossing Unit Operator (FAMOTIDINE)) 20 Mg Tablet, 20 MG PO DAILY, (Reported) Entered as Reported by: ALVIN WARD on 01/16/23 1607 Glimepiride (Glimepiride) 2 Mg Tablet, 2 MG PO DAILY, (Reported) Entered as Reported by: ALVIN WARD on 01/16/231606 Hydrocodone/Acetaminophen (Hydrocodone-Acetamin 7.5-325) 7.5 Mg-325 Mg Tablet, 1 EACH PO BID PRN PRN for PAIN-BREAKTHROUGH, (Reported) Entered as Reported by: ALVIN WARD on 01/16/231606 Irbesartan (Irbesartan) 75 Mg Tablet, 75 MG PO DAILY, (Reported) Entered as Reported by: ALVIN WARD on 01/16/231606 Melatonin (Melatonin) 5 Mg Capsule, 5 MG PO DAILY, (Reported) Entered as Reported by: ALVIN WARD on 01/16/231606 Ondansetron (Ondansetron Odt) 8 Mg Tab.rapdis, 8 MG PO Q6H Prescribed by: KEE HE on 01/26/23 014 Pantoprazole Sodium (Pantoprazole Sodium) 20 Mg Tablet.dr, 20 MG PO DAILY, (Reported) Entered as Reported by: ALVIN WARD on 01/16/231606 Pantoprazole Sodium (Pantoprazole Sodium) 40 Mg Tablet.dr, (Reported) Entered as Reported by: NATO ALEJO on 01/25/232217 Pioglitazone HCl (Pioglitazone HCl) 15 Mg Tablet, 5 MG PO DAILY, (Reported) Entered as Reported by: ALVIN WARD on 01/16/231606 Sitagliptin Phosphate (Januvia) 50 Mg Tablet, 75 MG PO DAILY, (Reported) Entered as Reported by: ALVIN WARD on 01/16/231606 Sitagliptin Phosphate (Januvia) 100 Mg Tablet, (Reported) Entered as Reported by: NATO ALEJO on 01/25/232217 Review of Systems Constitutional: No chills, No diaphoresis EENTM: No ear pain, No blurred vision, No double vision Respiratory: No cough, No dyspnea on exertion, No short of breath Cardiovascular: No chest pain Gastrointestinal: No abdominal pain, No diarrhea, No nausea, No vomiting Genitourinary: No decreased output Musculoskeletal: joint pain, muscle pain Skin: No change in color, No change in hair/nails (TRANG SAHU) All Other Systems Reviewed Negative Unless Noted: Yes (TRANG SAHU) Past Cesmbdj-Gxrgup-Xxhaky Hx Patient Social History Tobacco Use?: Yes Tobacco type used: Cigarettes Smoking Status: Current Everyday Smoker Use of E-Cig and/or Vaping dev: No Substance use?: No Alcohol Use?: No (TRANG SAHU) Immunizations Up To Date Tetanus Booster (TDap): Less than 5yrs First/Initial COVID19 Vaccinat: 10/11/20 Second COVID19 Vaccination Humza: 11/09/20 Third COVID19 Vaccination Date: 06/11/21 (TRANG SAHU) Past Medical History Surgery/Hospitalization HX: PMH;DM, HYPERTENSION, CKD STAGE 3, HYPERKALEMIA, HX OF BREAST AND ENDO. CANCER. SURGERIES;HYST. 2013, HIP REPLACEMENT 04/2020, LUMP ECTOMY 2011, TATOO REMOVAL 2001. 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 Sexually Transmitted Disease: No HIV/AIDS: No Genitourinary: No Gastrointestinal: Yes Gastroesophageal Reflux, Diverticulosis Musculoskeletal: Yes (L4 AND L5 BULGING AND HERNIATED DISC) Chronic Back Pain Endocrine: Yes Diabetes, Non-Insulin dep HEENT: No Cancer: Yes (BREAST AND ENDOMETRIAL) Breast Did You Recieve Any Treatments: Yes What Type of Treatment Did You: Chemotherapy, Radiation, Surgical Intervention Psychosocial: No Integumentary: No Herpes Blood Disorders: No (TRANG SAHU) Family Medical History Congestive heart failure 19 FATHER 19 MOTHER Family history: Arthritis 19 FATHER Family history: Cardiovascular disease 19 FATHER 19 MOTHER Family history: Diabetes mellitus 19 FATHER 19 MOTHER Family history: Gastrointestinal disease 19 FATHER History of - respiratory disease 19 FATHER Kidney disease G8 SISTER No Family History of: Abdominal aortic aneurysm Alcoholism Cancer Dementia Family history: Alzheimer's disease Family history: Asthma Family history: Breast disease Family history: Hypertension Family history: Thyroid disorder Heart disease Hereditary disease Myocardial infarction Parkinson's disease Psychotic disorder Seizure disorder Stroke Physical Exam Vital Signs Vital Signs - First Documented 02/25/23 21:13 Temp 37.2 Pulse 101 Resp 18 B/P (MAP) 166/64 (98) Pulse Ox 99 O2 Delivery Room Air (EBTTY CONDE MD) Vital Signs Capillary Refill : (TRANG SAHU) Height, Weight, BMI Height: 5'2.00" Weight: 194lbs. 0.0oz. 87.837962mr; 34.00 BMI Method:Stated General Appearance: WD/WN, no apparent distress HEENT: PERRL/EOMI, normal ENT inspection, TMs normal, pharynx normal Neck: non-tender, full range of motion, supple, normal inspection Cardiovascular: regular rate, rhythm, no edema, no gallop, no JVD Respiratory: chest non-tender, lungs clear, normal breath sounds, no respiratory distress, no accessory muscle use Gastrointestinal: normal bowel sounds, non tender, soft, no organomegaly Back: normal inspection, no CVA tenderness Legs: left leg other (Left lateral posterior hamstring tenderness.) Knees: left knee other (Left lateral knee tenderness. Flexion to 90 degrees with full extension. Normal patella tracking. No pain with valgus or varus stress or anterior posterior drawer test. No obvious lucency. No obvious effusion. 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 differential diagnosis, left knee sprain, left hamstring strain, knee fracture. Due to mechanism of injury x-ray was ordered of the knee and femur. History of left hip replacement. No specific falls however she does have a history of pain in her left hamstring. She does have a history of endometrial cancer and breast cancer. She had a bone scan recently and they noted a lesion in her right hip. X-rays did not note any acute fractures or obvious bone lesions of the left femur or knee. Joint effusi on noted. Refuse anything for pain. She does have hydrocodone and baclofen at home. She does have neuropathy type pain in her lower left leg secondary to a pinched nerve in her lower back. She does see Dr. Morales. She is tenderness to palpate the left hamstring and left lateral knee. Concern for more of a knee sprain and hamstring strain at this time. She would likely benefit with physical therapy which she does have outpatient orders for her left leg. Recommend ice, elevation, continue with your cane for stability. Brace for the left knee to help support. Recommend following up with orthopedic for further evaluation. (TRANG SAHU) Impression Primary Impression: Sprain of knee Additional Impression: Hamstring strain Disposition: 01 HOME, SELF-CARE Condition: Stable Departure-Patient Inst. Decision time for Depature: 22:12 (TRANG SAHU) Referrals: BARON ZAMORA MD (PCP) Primary Care Physician CARLEEN FREED (Family) Primary Care Physician Patient Instructions: Knee Sprain (DC) Add. Discharge Instructions: Continue with your pain medication. Cane for comfort. Follow-up with physical therapy. Orthopedic outpatient follow-up. May use a brace for support All discharge instructions reviewed with patient and/or family. Voiced un derstanding. TRANG SAHU Feb 25, 2023 21:25 BETTY CONDE MD Feb 27, 2023 04:16
--- NOTE | 2023-02-26 07:10 | Diagnostic Imaging Report ---
INDICATION: Pain EXAMINATION: Left knee 02/25/23 FINDINGS: 3 views of the knee There is a moderate joint effusion. No fractures or dislocations appreciated. Mild medial compartment narrowing and patellofemoral narrowing noted. Atherosclerotic disease present. IMPRESSION: 1. Joint effusion with no fractures or dislocations. Dictated by: Dictated on workstation # [id number]
--- NOTE | 2023-02-26 07:54 | Diagnostic Imaging Report ---
INDICATION: Knee pain. EXAMINATION: Left femur 02/25/2023. FINDINGS: 4 views of the femur. There is total hip arthroplasty on the left which appears intact. No evidence for loosening or fracture. Remaining distal femur intact. Knee joint preserved. Atherosclerotic disease incidentally noted. A moderate joint effusion noted at the knee. IMPRESSION: 1. Nonspecific joint effusion at the knee with no fractures or dislocations. 2. Left hip prosthesis intact. Dictated by: Dictated on workstation # [id number]
== END 2023-02-25 22:18 | disposition home or self-care (01) ==
LOC: EDUNIT# 20:29 → ER 20:31
DX: S86.912A Strain of unspecified muscle(s) and tendon(s) at lower leg level, left leg, initial encounter (principal); F17.210 Nicotine dependence, cigarettes, uncomplicated; X50.1XXA Overexertion from prolonged static or awkward postures, initial encounter; Y93.01 Activity, walking, marching and hiking
CPT/HCPCS: 73552; 73562